=== PATIENT | female | born 1960 | race Caucasian/White ===

== ENCOUNTER → 2016-02-26 | Outpatient (CLI) | payer MEDICARE ==
--- NOTE | 2016-02-26 09:41 | WWHP ---
DATE OF SERVICE: 02/26/2016 CHIEF COMPLAINT: The patient is here for her routine gynecologic exam and mammogram. HPI: This is a 55-year-old G1, P1 with an LMP of 2011. The patient denies any postmenopausal bleeding. She continues to have some hot flashes, but they are fairly mild and improving. She is without gynecologic complaints. PAST MEDICAL HISTORY: Asthma, elevated cholesterol, chronic hypertension, seasonal allergies, arthritis, mitral valve prolapse and degenerative disc disease. MEDICATIONS: 1. Zetia 10 mg daily. 2. Flexeril 10 mg t.i.d. 3. Singulair 10 mg daily. 4. Claritin 10 mg daily. 5. QVAR 80 MG 2 puffs b.i.d. 6. Simvastatin 20 mg daily. 7. Hyzaar 1 daily. 8. Neurontin 100 mg t.i.d. 9. Omeprazole 20 mg 2 tablets t.i.d. 10. Ibuprofen p.r.n. 11. Glucosamine 1 daily. 12. Vitamin C, vitamin E and flaxseed oil supplements daily. Allergies to IV CONTRAST which caused heat at the IV site. 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 Family history is unchanged from the 2014 H&P. REVIEW OF SYSTEMS: Weight has been stable. She denies respiratory, cardiac, or GI problems. PHYSICAL EXAM: Blood pressure 121/62. Height 5 feet 3-1/2 inches. Weight 226 pounds. Temperature 98.2, pulse 87. This is a well-developed, heavyset, white female who is alert and oriented x3 in no acute distress. HEENT is within normal limits. NECK: Supple without mass or thyromegaly. CHEST AND LUNGS: Clear to auscultation. HEART: Regular rate and rhythm. Breasts are without mass or discharge. Axillary exam is negative for adenopathy. BACK: Negative for CVA tenderness. Abdomen is obese, soft, nontender, without palpable masses. PELVIC EXAM: Normal external genitalia. The cervix and vagina appear normal. There is no evidence of prolapse. The uterus is midposition, nongravid size and nontender. There are no palpable adnexal masses or tenderness. Rectovaginal exam is negative for mass or tenderness and is negative for occult blood. EXTREMITIES: Nontender. IMPRESSION: A 55-year-old menopausal female with normal gynecologic exam. PLAN: 1. Pap smear was deferred, since she had a negative one in 12/2014. 2. Self breast examination was discussed. 3. Mammogram will be done today. 4. Osteoporosis prevention was discussed. 5. She will return in one year.
--- NOTE | 2016-02-27 09:46 | MM ---
Reason for exam: screening (asymptomatic). Last mammogram was performed 1 year and 2 months ago. History: Patient is postmenopausal and has history of other cancer at age 41. Family history of breast cancer in cousin and breast cancer in mother. Physical Findings: A clinical breast exam by your physician is recommended on an annual basis and results should be correlated with mammographic findings. MG 3D Screening Mammo W/Cad Bilateral CC and MLO view(s) were taken. Prior study comparison: December 11, 2014, bilateral MG screening mammo w CAD. August 24, 2013, bilateral MG screening mammo w CAD. The breast tissue is heterogeneously dense. This may lower the sensitivity of mammography. There is chronic nodularity bilaterally. There is no dominant lesion. No significant changes when compared with prior studies. ASSESSMENT: Benign, BI-RAD 2 RECOMMENDATION: Routine screening mammogram of both breasts in 1 year.
== END | disposition home or self-care (01) ==
LOC: WWCWWP 08:36
PROVIDERS: ATTEND Obstetrics & Gynecology
DX: Z12.31 Encounter for screening mammogram for malignant neoplasm of breast (principal)
CPT/HCPCS: 77063; G0202

== ENCOUNTER → 2016-06-24 | Outpatient (CLI) | payer MEDICARE ==
[2016-06-24 10:25] LABS: Cholesterol 151 mg/dL (<200); HDL Cholesterol 30 mg/dL (40-60); Triglycerides 185 mg/dL (<150)
== END | disposition home or self-care (01) ==
LOC: LABWHC1 09:43
PROVIDERS: ATTEND Internal Medicine
DX: E78.00 Pure hypercholesterolemia, unspecified (principal); I10 Essential (primary) hypertension
CPT/HCPCS: 36415; 80061; 83721

== ENCOUNTER → 2016-08-13 | Outpatient (CLI) | payer OTHER ==
--- NOTE | 2016-08-13 13:46 | US ---
EXAMINATION TYPE: US pelvic limited DATE OF EXAM: 08/13/2016 COMPARISON: NONE CLINICAL HISTORY: R39.15 urinary urgency. Bladder pre void 2.5 x 5.8 x 5.3 cm 40.32ml. Bladder post void emptied completely. IMPRESSION: 1. No significant bladder abnormality.
== END | disposition home or self-care (01) ==
LOC: RADUSWWP 12:14
PROVIDERS: ATTEND Family Medicine
DX: R39.15 Urgency of urination (principal)
CPT/HCPCS: 76857

== ENCOUNTER → 2017-03-02 | Outpatient (CLI) | payer MEDICARE, OTHER ==
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
--- NOTE | 2017-03-03 13:21 | MM ---
Reason for exam: screening (asymptomatic). Last mammogram was performed 1 year ago. History: Patient is postmenopausal and has history of other cancer at age 41. Family history of breast cancer in cousin and breast cancer in mother. Physical Findings: A clinical breast exam by your physician is recommended on an annual basis and results should be correlated with mammographic findings. MG 3D Screening Mammo W/Cad Bilateral CC and MLO view(s) were taken. Prior study comparison: February 26, 2016, bilateral MG 3d screening mammo w/cad. December 11, 2014, bilateral MG screening mammo w CAD. August 24, 2013, bilateral MG screening mammo w CAD. The breast tissue is heterogeneously dense. This may lower the sensitivity of mammography. There is no discrete abnormality. ASSESSMENT: Negative, BI-RAD 1 RECOMMENDATION: Routine screening mammogram of both breasts in 1 year.
== END | disposition home or self-care (01) ==
LOC: WWCWWP 08:08
PROVIDERS: ATTEND Obstetrics & Gynecology
DX: Z12.31 Encounter for screening mammogram for malignant neoplasm of breast (principal)
CPT/HCPCS: 77063; 77067

== ENCOUNTER → 2018-06-07 | Outpatient (CLI) | payer MEDICARE ==
--- NOTE | 2018-06-07 13:09 | P.HPOB ---
History of Present Illness H&P Date: 06/07/18 Chief Complaint: The patient is here for her routine gynecologic exam and ma mmogram. This is a 58-year-old with an LMP of 2011. The patient is without gynecologic complaints and denies the postmenopausal bleeding. Review of Systems The patient has lost 7 pounds over the last year. She denies respiratory, cardiac, or G.I. problems. Past Medical History Past Medical History: Asthma, Cancer, Diabetes Mellitus, GERD/Reflux, Hyperlipidemia, Hypertension, Mitral Valve Prolapse (MVP), Neurologic Disorder, Osteoarthritis (OA) Additional Past Medical History / Comment(s): neuropathy in hands and feet, degenerative disc disease, skin ca shoulder 2013, mitral valve prolapse, type II diabetes, and seasonal allergies. 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 History of Any Multi-Drug Resistant Organisms: None Reported Past Surgical History: Adenoidectomy, Orthopedic Surgery, Tonsillectomy Additional Past Surgical History / Comment(s): left knee arthritis & tears repaired. Colonoscopy 2013. Past Anesthesia/Blood Transfusion Reactions: Postoperative Nausea & Vomiting (PONV) Past Psychological History: No Psychological Hx Reported Smoking Status: Never smoker Past Alcohol Use History: None Reported Past Drug Use History: None Reported Additional History: She is single and is not seeing anybody at this time. 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 She otherwise does not work outside of the home. - Past Family History Mother Family Medical History: Cancer, Congestive Heart Failure (CHF), Coronary Artery Disease (CAD), Diabetes Mellitus, Hyperlipidemia, Hypertension Additional Family Medical History / Comment(s): Breast cancer. Father Family Medical History: Coronary Artery Disease (CAD), Diabetes Mellitus, Hyperlipidemia, Hypertension Additional Family Medical History / Comment(s): passed during an angioplasty Daughter(s) Family Medical History: No Reported History Medications and Allergies Home Medications Medication Instructions Recorded Confirmed Type Ascorbic Acid [Vitamin C] 500 mg PO QAM 03/25/15 06/07/18 History Beclomethasone Dipropionate [Qvar 2 puff INHALATION RT-BID 03/25/15 06/07/18 History 80 mcg/puff] Cyclobenzaprine [Flexeril] 10 mg PO TID 03/25/15 06/07/18 History Gabapentin [Neurontin] 100 mg PO TID 03/25/15 06/07/18 History Glucosam/Dante-Msm1/C/Mukul/Bosw 1 tab PO QAM 03/25/15 06/07/18 History [Glucosamine-Chondroitin Tablet] Loratadine [Claritin] 10 mg PO QAM 03/25/15 06/07/18 History Montelukast [Singulair] 10 mg PO DAILY@1600 03/25/15 06/07/18 History Omeprazole [PriLOSEC] 20 mg PO AC-BID 03/25/15 06/07/18 History Simvastatin [Zocor] 20 mg PO HS 03/25/15 06/07/18 History Vitamin E (Dl,Tocopheryl Acet) 400 unit PO DAILY@1600 03/25/15 06/07/18 History [Vitamin E] Ezetimibe [Zetia] 10 mg PO DAILY 05/08/16 06/07/18 History Flaxseed Oil 1300mg 1,300 mg PO HS 05/08/16 06/07/18 History Aspirin 325 mg PO BID 28 Days tab 05/13/16 06/07/18 Rx Docusate [Colace] 100 mg PO BID PRN #0 cap 05/13/16 06/07/18 Rx HYDROcodone/APAP 7.5-325MG [[place] 1 each PO Q6H PRN #90 tab 05/13/16 06/07/18 Rx 7.5-325] Ipratropium-Albuterol Nebulize 3 ml INHALATION RT-QID PRN #0 05/13/16 06/07/18 Rx [Duoneb 0.5 mg-3 mg/3 ml Soln] ampul.neb Losartan [Cozaar] 50 mg PO DAILY #0 tab 05/13/16 06/07/18 Rx Magnesium Hydroxide [Milk of 2,400 mg PO DAILY PRN #0 ml 05/13/16 06/07/18 Rx Magnesia Concentrate] Cranberry Fruit Extract [Cranberry] 500 mg PO DAILY 06/07/18 06/07/18 History L.acidoph,Paracasei, B.lactis 1 each PO DAILY 06/07/18 06/07/18 History [Probiotic] Multivit with Calcium,Iron,Min 1 each PO DAILY 06/07/18 06/07/18 History [Women's Multivitamin] metFORMIN HCL [Glucophage] 500 mg PO BID 06/07/18 06/07/18 History Allergies Allergy/AdvReac Type Severity Reaction Status Date / Time Iodine and Iodide Containing Allergy burning Verified 06/07/18 12:42 Produc Exam Intake and Output 06/06/18 06/07/18 06/07/18 22:59 06:59 14:59 Other: Weight 101.2 kg Height 5'3", weight 223 pounds, BMI 39.5, blood pressure 119/87, temperature 98.4, pulse 83, pulse ox 98%, respiratory rate 18. This is a well-developed well-nourished obese white female who is alert and oriented times 3 in no acute distress. HEENT: Within normal limits. NECK: Supple without mass or thyromegaly. CHEST AND LUNGS: Clear to auscultation. HEART: Regular rate and rhythm. BREASTS: Are without mass or discharge. AXILLARY EXAM: Negative for adenopathy. BACK: Negative for CVA tenderness. ABDOMEN: Soft, obese, nontender, without palpable masses. PELVIC EXAM: Normal external genitalia with minimal atrophy. Cervix and vagina appear normal with minimal atrophy. There is no unusual discharge. There is no evidence of prolapse. The uterus is midposition, nongravid size and nontender. There are no palpable adnexal masses or tenderness. RECTAL EXAM: rectovaginal exam is negative for mass or tenderness and is negative for occult blood. EXTREMITIES: Nontender. IMPRESSION: 1. 58-year-old menopausal female with normal gynecologic exam. PLAN: 1. Pap smear was deferred since she had a normal one on 03/02/2017. 2. Self breast awareness was discussed with the patient. 3. Screening mammogram will be done today. 4. Osteoporosis prevention was discussed. I have stressed the importance of adequate calcium, vitamin D and regular exercise. Recommended amounts of calcium and vitamin D were also discussed. We plan on repeating bone density testing at age 59. 5. She was advised to return in one year for her annual well woman exam.
--- NOTE | 2018-06-07 13:40 | MM ---
Reason for exam: screening (asymptomatic). Last mammogram was performed 1 year and 3 months ago. History: Patient is postmenopausal and has history of other cancer at age 41. Family history of breast cancer in cousin and breast cancer in mother. Physical Findings: A clinical breast exam by your physician is recommended on an annual basis and results should be correlated with mammographic findings. MG 3D Screening Mammo W/Cad Bilateral CC and MLO view(s) were taken. Prior study comparison: March 02, 2017, bilateral MG 3d screening mammo w/cad. February 26, 2016, bilateral MG 3d screening mammo w/cad. The breast tissue is heterogeneously dense. This may lower the sensitivity of mammography. There is no discrete abnormality. ASSESSMENT: Negative, BI-RAD 1 RECOMMENDATION: Routine screening mammogram of both breasts in 1 year.
[2018-06-07 14:16] VITALS: BP 119/87; PULSE 83; RESP 18; TEMP 98.4; BMI 39.5
== END ==
LOC: WWCWWP 10:45
PROVIDERS: ATTEND Obstetrics & Gynecology
DX: Z12.31 Encounter for screening mammogram for malignant neoplasm of breast (principal)
CPT/HCPCS: 77063; 77067

== ENCOUNTER → 2019-06-13 | Outpatient (CLI) | payer MEDICARE, OTHER ==
--- NOTE | 2019-06-14 11:00 | ECHOF ---
Referral Reason:R01.1 cardiac murmur MEASUREMENTS -------- HEIGHT: 161.3 cm WEIGHT: 98.4 kg BP: RVIDd: 2.8 cm (< 3.3) IVSd: 1.3 cm (0.6 - 1.1) LVIDd: 4.0 cm (3.9 - 5.3) LVPWd: 1.3 cm (0.6 - 1.1) IVSs: 1.7 cm LVIDs: 2.8 cm LVPWs: 1.4 cm LA Diam: 3.3 cm (2.7 - 3.8) LAESV Index (A-L): 19.89 ml/m Ao Diam: 2.7 cm (2.0 - 3.7) AV Cusp: 1.8 cm (1.5 - 2.6) MV EXCURSION: 12.865 mm (> 18.000) MV EF SLOPE: 22 mm/s (70 - 150) EPSS: 0.6 cm MV E Eleno: 0.86 m/s MV DecT: 271 ms MV A Eleno: 1.11 m/s MV E/A Ratio: 0.77 RAP: 5.00 mmHg RVSP: 21.24 mmHg FINDINGS -------- Sinus rhythm. This was a technically adequate study. The left ventricular size is normal. There is mild concentric left ventricular hypertrophy. Overa ll left ventricular systolic function is normal with, an EF between 60 - 65 %. The right ventricle is normal in size. Normal LA size by volume 22+/-6 ml/m2. The right atrium is normal in size. Interatrial and interventricular septum intact. There is mild aortic valve sclerosis. The mitral valve leaflets are mildly thickened. Mild tricuspid regurgitation present. Right ventricular systolic pressure is normal at < 35 mmHg. The pulmonic valve was not well visualized. The aortic root size is normal. IVC Not well visulized. There is no pericardial effusion. CONCLUSIONS -------- 1. Sinus rhythm. 2. This was a technically adequate study. 3. The left ventricular size is normal. 4. There is mild concentric left ventricular hypertrophy. 5. Overall left ventricular systolic function is normal with, an EF between 60 - 65 %. 6. The right ventricle is normal in size. 7. Normal LA size by volume 22+/-6 ml/m2. 8. The right atrium is normal in size. 9. Interatrial and interventricular septum intact. 10. There is mild aortic valve sclerosis. 11. The mitral valve leaflets are mildly thickened. 12. Mild tricuspid regurgitation present. 13. Right ventricular systolic pressure is normal at < 35 mmHg. 14. The pulmonic valve was not well visualized. 15. The aortic root size is normal. 16. IVC Not well visulized. 17. There is no pericardial effusion. ICU REGISTERED NURSE: ANABELA Covarrubias
== END | disposition home or self-care (01) ==
LOC: RADECHMAIN 11:50
PROVIDERS: ATTEND Internal Medicine
DX: I08.3 Combined rheumatic disorders of mitral, aortic and tricuspid valves (principal)
CPT/HCPCS: 93306

== ENCOUNTER → 2019-09-19 | Outpatient (CLI) | payer MEDICARE ==
[2019-09-19 11:38] VITALS: BP 123/74; PULSE 81; RESP 18; TEMP 98.3
--- NOTE | 2019-09-19 12:09 | P.HPOB ---
History of Present Illness H&P Date: 09/19/19 Chief Complaint: The patient is here for her routine gynecologic exam and ma mmogram. This is a 59-year-old with an LMP of 2011. The patient is without gynecologic complaints and denies any postmenopausal bleeding. She is in a new relationship and has been with her boyfriend for about 5 months and does not live with him. She is sexually active. Review of Systems The patient has lost 5 pounds over the last year. She denies respiratory, cardiac, or G.I. problems. Past Medical History Past Medical History: Asthma, Cancer, Diabetes Mellitus, GERD/Reflux, Hyperlipidemia, Hypertension, Mitral Valve Prolapse (MVP), Neurologic Disorder, Osteoarthritis (OA) Additional Past Medical History / Comment(s): neuropathy in hands and feet, degenerative disc disease, skin ca shoulder 2013, mitral valve prolapse, type II diabetes, and seasonal allergies. 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 History of Any Multi-Drug Resistant Organisms: ESBL Date of last positivie culture/infection: 11/30/18 ESBL-E.coli MDRO Source:: Urine Past Surgical History: Adenoidectomy, Orthopedic Surgery, Tonsillectomy Additional Past Surgical History / Comment(s): left knee arthritis & tears repaired. Colonoscopy 2013(next after 10yr). Past Anesthesia/Blood Transfusion Reactions: Postoperative Nausea & Vomiting (PONV) Past Psychological History: No Psychological Hx Reported Smoking Status: Never smoker Past Alcohol Use History: None Reported Past Drug Use History: None Reported Additional History: She is single and has been with her boyfriend since early 2019. She does not live with him. 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 - Past Family History Mother Family Medical History: Cancer, Congestive Heart Failure (CHF), Coronary Artery Disease (CAD), Diabetes Mellitus, Hyperlipidemia, Hypertension Additional Family Medical History / Comment(s): Breast cancer. Father Family Medical History: Coronary Artery Disease (CAD), Diabetes Mellitus, Hyperlipidemia, Hypertension Additional Family Medical History / Comment(s): passed during an angioplasty Daughter(s) Family Medical History: No Reported History Medications and Allergies Home Medications Medication Instructions Recorded Confirmed Type Ascorbic Acid [Vitamin C] 500 mg PO QAM 03/25/15 06/07/18 History Beclomethasone Dipropionate [Qvar 2 puff INHALATION RT-BID 03/25/15 06/07/18 History 80 mcg/puff] Cyclobenzaprine [Flexeril] 10 mg PO TID 03/25/15 06/07/18 History Gabapentin [Neurontin] 100 mg PO TID 03/25/15 06/07/18 History Glucosam/Dante-Msm1/C/[place]/Bosw 1 tab PO QAM 03/25/15 06/07/18 History [Glucosamine-Chondroitin Tablet] Loratadine [Claritin] 10 mg PO QAM 03/25/15 06/07/18 History Montelukast [Singulair] 10 mg PO DAILY@1600 03/25/15 06/07/18 History Omeprazole [PriLOSEC] 20 mg PO AC-BID 03/25/15 06/07/18 History Simvastatin [Zocor] 20 mg PO HS 03/25/15 06/07/18 History Vitamin E (Dl,Tocopheryl Acet) 400 unit PO DAILY@1600 03/25/15 06/07/18 History [Vitamin E] Ezetimibe [Zetia] 10 mg PO DAILY 05/08/16 06/07/18 History Flaxseed Oil 1300mg 1,300 mg PO HS 05/08/16 06/07/18 History Aspirin 325 mg PO BID 28 Days tab 05/13/16 06/07/18 Rx Docusate [Colace] 100 mg PO BID PRN #0 cap 05/13/16 06/07/18 Rx HYDROcodone/APAP 7.5-325MG [[place] 1 each PO Q6H PRN #90 tab 05/13/16 06/07/18 Rx 7.5-325] Ipratropium-Albuterol Nebulize 3 ml INHALATION RT-QID PRN #0 05/13/16 06/07/18 Rx [Duoneb 0.5 mg-3 mg/3 ml Soln] ampul.neb Losartan [Cozaar] 50 mg PO DAILY #0 tab 05/13/16 06/07/18 Rx Magnesium Hydroxide [Milk of 2,400 mg PO DAILY PRN #0 ml 05/13/16 06/07/18 Rx Magnesia Concentrate] Cranberry Fruit Extract [Cranberry] 500 mg PO DAILY 06/07/18 06/07/18 History L.acidoph,Paracasei, B.lactis 1 each PO DAILY 06/07/18 06/07/18 History [Probiotic] Multivit with Calcium,Iron,Min 1 each PO DAILY 06/07/18 06/07/18 History [Women's Multivitamin] metFORMIN HCL [Glucophage] 500 mg PO BID 06/07/18 06/07/18 History Allergies Allergy/AdvReac Type Severity Reaction Status Date / Time Iodine and Iodide Containing Allergy burning Verified 09/19/19 11:31 Produc Exam Vital Signs Temp Pulse Resp BP Pulse Ox 09/19/19 11:34 98.3 F 81 18 123/74 98 Intake and Output 09/18/19 09/19/19 09/19/19 22:59 06:59 14:59 Other: Weight 98.883 kg Height 5 feet 3-1/2 inches, weight 218 pounds, BMI 30.0. This is a well-developed well-nourished heavyset white female who is alert and oriented times 3 in no acute distress. HEENT: Within normal limits. NECK: Supple without mass or thyromegaly. CHEST AND LUNGS: Clear to auscultation. HEART: Regular rate and rhythm. BREASTS: Are without mass or discharge. AXILLARY EXAM: Negative for adenopathy. BACK: Negative for CVA tenderness. ABDOMEN: Soft, nontender, without palpable masses. PELVIC EXAM: Normal external genitalia with minimal atrophy. Cervix and vagina appear normal with minimal atrophy. There is no unusual discharge. There is no evidence of prolapse. The uterus is midposition, nongravid size and nontender. There are no palpable adnexal masses or tenderness. Bimanual examination is somewhat limited secondary to her size. RECTAL EXAM: Rectovaginal exam is negative for mass or tenderness and is negative for occult blood. EXTREMITIES: Nontender. IMPRESSION: 1. 59-year-old menopausal female with normal gynecologic exam. PLAN: 1. Pap smear was performed. 2. Self breast awareness was discussed with the patient. 3. Screening mammogram will be done today. 4. GC and chlamydia testing from the cervix has been obtained since she does have a new sexual partner. STD prevention was discussed. I have stressed the importance of limiting sexual partners and I recommended she consider condom use when she is sexually active. 5. Osteoporosis prevention was discussed. I have stressed the importance of adequate calcium, vitamin D and regular exercise. Recommended amounts of calcium and vitamin D were also discussed. Bone density testing was recommended and the order slip was given to the patient for this. 6. She was advised to return in one year for her annual well woman exam.
--- NOTE | 2019-09-21 11:32 | MM ---
Reason for exam: screening (asymptomatic). Last mammogram was performed 1 year and 3 months ago. History: Patient is postmenopausal and has history of other cancer at age 41. Family history of breast cancer in cousin and breast cancer in mother. Physical Findings: A clinical breast exam by your physician is recommended on an annual basis and results should be correlated with mammographic findings. MG 3D Screening Mammo W/Cad Bilateral CC and MLO view(s) were taken. Prior study comparison: June 07, 2018, bilateral MG 3d screening mammo w/cad. March 02, 2017, bilateral MG 3d screening mammo w/cad. The breast tissue is heterogeneously dense. This may lower the sensitivity of mammography. No significant changes when compared with prior studies. ASSESSMENT: Negative, BI-RAD 1 RECOMMENDATION: Routine screening mammogram of both breasts in 1 year.
--- NOTE | 2019-09-27 11:48 | P.PN ---
Progress Note - Text Progress Note Date: 09/27/19 OUTPATIENT FOLLOW-UP NOTE TEST(S)/RESULTS: Test results from 09/19/2019 include negative Pap smear, negative GC and chlamydia testing, and benign mammogram. METHOD OF NOTIFICATION: The patient was notified by phone. PATIENT COMMENTS: DIAGNOSIS: If Pap smear, benign mammogram and negative GC and chlamydia testing. DISCUSSION: PLAN: She was advised to return in one year for her annual well woman exam.
== END | disposition home or self-care (01) ==
LOC: WWCWWP 10:54
PROVIDERS: ATTEND Obstetrics & Gynecology
DX: Z12.31 Encounter for screening mammogram for malignant neoplasm of breast (principal)
CPT/HCPCS: 77063; 77067

== ENCOUNTER → 2020-05-16 | Day surgery (SDC) | payer MEDICARE ==
[2020-05-10 13:08] VITALS: BMI 39.0
[~2020-05-16] MED LIST: ALPRAZolam 0.25 MG TAB PO PRN; ALPRAZolam 0.5 MG TAB PO PRN; ASPIRIN 325 MG TAB PO STA; ATORVASTATIN 80 MG TAB PO STA; HEPARIN SODIUM 1,000 UN/ML (10ML VL) ONE; HEPARIN SODIUM,PORCINE 10,000 UNIT in SODIUM CHLORIDE 0.9% 1,000 ML IRRIGATION PRN; HEPARIN SODIUM,PORCINE 2,500 UNIT in SODIUM CHLORIDE 0.9% 250 ML IRRIGATION PRN; INSULIN ASPART (NovoLOG) 100 UNIT/ML VIAL SQ ONE; IOPAMIDOL-370 125ML BTL INJ ONE; LIDOCAINE 1% INJ 10MG/ML (20 ML MDV) ONE; LIDOCAINE 1% INJ 10MG/ML (20 ML MDV) SQ ONE; MIDAZOLAM 2 MG/2 ML VIAL IV ONE; NITROGLYCERIN SL TABS 0.4 MG TAB SUBLINGUAL PRN; RX INFO: IV CONTRAST WAS GIVEN 1 EACH MISC MISCELLANE PRN; SODIUM CHLORIDE 0.9% 1,000 ML IV ONE; SODIUM CHLORIDE 0.9% 1,000 ML IV SCH; SODIUM CHLORIDE 0.9% 1,000 ML in EMPTY BAG 1 BAG IV ONE; VERAPAMIL 2.5 MG/ML 2 ML AMP ONE; VERAPAMIL SYRINGE (5 MG/10 ML) INTRAARTER ONE; fentaNYL (PF) 50 MCG/ML 2 ML AMP IV ONE; fentaNYL (PF) 50 MCG/ML 2 ML AMP ONE
[2020-05-16 07:14] LABS: Glucose,Whole Blood 200 mg/dL (75-99)
[2020-05-16 07:15] LABS: Basophils % (A) 0 %; Eosinophils % (A) 0 %; HCT 42.2 % (34.0-46.0); HGB 14.3 gm/dL (11.4-16.0); Lymphocytes # (A) 2.6 k/uL (1.0-4.8); Lymphocytes % (A) 11 %; MCH 31.5 pg (25.0-35.0); MCHC 33.9 g/dL (31.0-37.0); MCV 92.9 fL (80.0-100.0); Mean Platelet Volume 7.6; Monocytes # (A) 1.2 k/uL (0-1.0); Monocytes % (A) 5 %; Neutrophils # (A) 18.9 k/uL (1.3-7.7); Neutrophils % (A) 81 %; Platelet Count 411 k/uL (150-450); RBC 4.54 m/uL (3.80-5.40); RDW 13.3 % (11.5-15.5); WBC 23.5 k/uL (3.8-10.6)
[2020-05-16 07:19] VITALS: RESP 16; TEMP 98.3
--- NOTE | 2020-05-16 08:26 | P.CARDCATH ---
Date of Procedure: 05/16/20 Preoperative Diagnosis: Chest pain and positive stress test Postoperative Diagnosis: Normal coronary arteries. Elevated end-diastolic pressure Procedure(s) Performed: Left heart catheterization without left ventriculography Description of Procedure: HISTORY: This is a 59-year-old female with history of hypertension, hypercholesterolemia and diabetes who has been experiencing chest pain and back pain. A nuclear stress test showed possible ischemia involving the anteroapical and inferolateral wall, though soft tissue attenuation could not be excluded. Patient is given the choice of having cardiac catheterization or dobutamine echocardiogram for definitive diagnosis. Patient preferred to have a cardiac catheterization CONSENT:I have discussed the risks, benefits and alternative therapies for the above-mentioned procedure and for both sedation/analgesia as well as necessary blood product administration, if indicated, as they pertain to this patient. The patient has indicated understanding and acceptance of the risks and procedures discussed. PROCEDURE: Patient was brought to the lab in a fasting state. Patient was given some IV sedation. The right wrist is infiltrated with lidocaine and right radial artery was entered using Seldinger technique. A 6-Yakut catheter was left in place and selective coronary arteriography was performed. Patient tolerated the procedure well. TR band was applied for hemostasis. No immediate complications were noted and patient was transferred to [facility] in a stable condition Conscious Sedation: Versed 0.5 mg Fentanyl 25 g Duration 16 minutes HEMODYNAMICS: Aortic pressure is about 100/60. The left ventricular end- diastolic pressure was about 25. There was no gradient across the aortic valve SELECTIVE CORONARY ARTERIOGRAPHY: LEFT MAIN: Short and divides immediately into left anterior descending and circumflex coronary artery THE LEFT ANTERIOR DESCENDING CORONARY ARTERY: . Good caliber vessel wrapping around the apex giving rise to several septal branches. The LAD and branches are free of occlusive disease THE LEFT CIRCUMFLEX AND IS CORONARY ARTERY: . Moderate caliber vessel and nondominant and free of occlusive disease THE RIGHT CORONARY ARTERY: . Him and vessel giving rise to PDA and PLV and free of occlusive disease LEFT VENTRICULOGRAPHY: Not performed FINAL IMPRESSION: Normal coronary arteries. Elevated end-diastolic pressure is sized to diastolic dysfunction PLAN: Continued medical therapy and risk factor modification PROGNOSIS: fair
[2020-05-16 14:00] VITALS: BP 127/67; PULSE 92
== END | disposition home or self-care (01) ==
LOC: CATHCVL 06:34
PROVIDERS: ATTEND Internal Medicine Cardiovascular Disease
DX: R07.9 Chest pain, unspecified (principal); R94.39 Abnormal result of other cardiovascular function study; I10 Essential (primary) hypertension; E78.5 Hyperlipidemia, unspecified; E11.9 Type 2 diabetes mellitus without complications; E78.00 Pure hypercholesterolemia, unspecified; Z82.49 Family history of ischemic heart disease and other diseases of the circulatory system; Z79.84 Long term (current) use of oral hypoglycemic drugs; Z79.82 Long term (current) use of aspirin; Z79.899 Other long term (current) drug therapy; Z91.048 Other nonmedicinal substance allergy status
CPT/HCPCS: 93458; 85025; C1894; J2250; J2001; J3010; J1644; Q9967

== ENCOUNTER → 2020-10-15 | Outpatient (CLI) | payer MEDICARE ==
[2020-10-15 11:51] VITALS: BP 157/90; PULSE 100; TEMP 98.3
--- NOTE | 2020-10-15 12:35 | P.HPOB ---
History of Present Illness H&P Date: 10/15/20 Chief Complaint: The patient is here for her routine gynecologic exam and ma mmogram. This is a 60-year-old with an LMP of 2011. The patient is without gynecologic complaints and denies any postmenopausal bleeding. She has been treated for 2 urinary tract infections over the past 2 months. She has slight urinary frequency now and also states that her main symptom for UTI has been urinary odor. She does notice a slight urinary odor at this time. Her last course of antibiotics for UTI was finished about 2 weeks ago. This was treated by her PCP. Review of Systems The patient has gained 4 pounds over the last year. She denies respiratory, cardiac, or G.I. problems. : See the HPI. Past Medical History Past Medical History: Asthma, Cancer, Diabetes Mellitus, GERD/Reflux, Hyperlipidemia, Hypertension, Mitral Valve Prolapse (MVP), Neurologic Disorder, Osteoarthritis (OA) Additional Past Medical History / Comment(s): neuropathy in hands and feet, degenerative disc disease, skin ca shoulder 2013, mitral valve prolapse, type II diabetes, and seasonal allergies. 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 History of Any Multi-Drug Resistant Organisms: ESBL Date of last positivie culture/infection: 11/30/18 ESBL-E.coli MDRO Source:: Urine Past Surgical History: Adenoidectomy, Orthopedic Surgery, Tonsillectomy Additional Past Surgical History / Comment(s): left knee arthritis & tears repaired. Colonoscopy 2013(next after 10yr)., 2017 HAD TITANIUM NAIL/DUSTIN IN LT FEMUR Past Anesthesia/Blood Transfusion Reactions: Postoperative Nausea & Vomiting (PONV) Past Psychological History: No Psychological Hx Reported Smoking Status: Never smoker Past Alcohol Use History: None Reported Past Drug Use History: None Reported Additional History: She is single and has been with her boyfriend since 2019. She does not live with him. She is retired. - Past Family History Mother Family Medical History: Cancer, Congestive Heart Failure (CHF), Coronary Artery Disease (CAD), Diabetes Mellitus, Hyperlipidemia, Hypertension Additional Family Medical History / Comment(s): Breast cancer. Father Family Medical History: Coronary Artery Disease (CAD), Diabetes Mellitus, Hyperlipidemia, Hypertension Additional Family Medical History / Comment(s): passed during an angioplasty Daughter(s) Family Medical History: No Reported History Sister(s) Family Medical History: Cancer Medications and Allergies Home Medications Medication Instructions Recorded Confirmed Type Cyclobenzaprine [Flexeril] 10 mg PO TID 03/25/15 10/15/20 History Gabapentin [Neurontin] 100 mg PO BID 03/25/15 10/15/20 History Glucosam/Dante-Msm1/C/Mukul/Bosw 1 tab PO QAM 03/25/15 10/15/20 History [Glucosamine-Chondroitin Tablet] Loratadine [Claritin] 10 mg PO QAM 03/25/15 10/15/20 History Montelukast [Singulair] 10 mg PO DAILY@1600 03/25/15 10/15/20 History Simvastatin [Zocor] 20 mg PO QAM 03/25/15 10/15/20 History Ezetimibe [Zetia] 10 mg PO DAILY 05/08/16 10/15/20 History Losartan [Cozaar] 50 mg PO DAILY #0 tab 05/13/16 10/15/20 Rx L.acidoph,Paracasei, B.lactis 1 each PO DAILY 06/07/18 10/15/20 History [Probiotic] metFORMIN HCL [Glucophage] 500 mg PO BID 06/07/18 10/15/20 History Biotin 10,000 mcg PO QAM 09/19/19 10/15/20 History Ibuprofen 800 mg PO Q8H 09/19/19 10/15/20 History Oxybutynin Chloride [Oxybutynin 10 mg PO QAM 09/19/19 10/15/20 History Chloride ER] Ascorbic Acid [Vitamin C] 500 mg PO DAILY 05/10/20 10/15/20 History Aspirin 325 mg PO DAILY 05/10/20 10/15/20 History Cider Vinegar [Apple Cider Vinegar] 300 mg PO DAILY 05/10/20 10/15/20 History Cranberry Fruit Extract [Cranberry] 500 mg PO DAILY 05/10/20 10/15/20 History Gabapentin [Neurontin] 300 mg PO HS 05/10/20 10/15/20 History [place]-3 Acid Ethyl Esters [Lovaza] 2 gm PO BID 05/10/20 10/15/20 History Omeprazole [PriLOSEC] 40 mg PO DAILY 05/10/20 10/15/20 History Calcium Carbonate [Calcium] 600 mg PO DAILY 10/15/20 10/15/20 History Cholecalciferol [Vitamin D3 (25 25 mcg PO DAILY 10/15/20 10/15/20 History Mcg = 1000 Iu)] Allergies Allergy/AdvReac Type Severity Reaction Status Date / Time Iodine and Iodide Containing Allergy burning Verified 10/15/20 11:42 Produc Exam Vital Signs Temp Pulse BP Pulse Ox 10/15/20 11:43 98.3 F 100 157/90 96 Intake and Output 10/14/20 10/15/20 10/15/20 22:59 06:59 14:59 Other: Weight 100.698 kg Height 5 feet 3 inches, weight 222 pounds, BMI 39.3. This is a well-developed well-nourished heavyset white female who is alert and oriented times 3 in no acute distress. HEENT: Within normal limits. NECK: Supple without mass or thyromegaly. CHEST AND LUNGS: Clear to auscultation. HEART: Regular rate and rhythm. BREASTS: Are without mass or discharge. AXILLARY EXAM: Negative for adenopathy. BACK: Negative for CVA tenderness. ABDOMEN: Soft, obese, nontender, without palpable masses. PELVIC EXAM: Normal external genitalia with mild atrophy. Cervix and vagina appear normal mild atrophy. There is no unusual discharge. There is no evidence of prolapse. The uterus is midposition, nongravid size and nontender. There are no palpable adnexal masses or tenderness. Bimanual examination is somewhat limited secondary to her size. RECTAL EXAM: Rectovaginal exam is negative for mass or tenderness and is negative for occult blood. EXTREMITIES: Nontender. IMPRESSION: 1. 60-year-old menopausal female with normal gynecologic exam. 2. Slight urinary frequency and slight urinary odor. She had been treated for 2 urinary tract infections over the past couple of months. Differential diagnosis will include cystitis Eli mild interstitial cystitis, or physiologic mild urinary symptoms. PLAN: 1. Pap smear cotest was performed. 2. Self breast awareness was discussed with the patient. We have also discussed symptoms associated with inflammatory breast cancer. 3. Screening mammogram will be done today. 4. Osteoporosis prevention was discussed. I have stressed the importance of adequate calcium, vitamin D and regular exercise. Recommended amounts of calcium and vitamin D were also given to the patient in the form of a handout. Her last bone density test was normal in 2013. We will plan on repeating this next year at her well woman examination. 5. Urine has been obtained for urinalysis and culture with sensitivity. If she continues to have urinary symptoms or recurrent UTIs, I recommended that she follow-up with her urologist, Dr. Roberts. She is aware that certain foods, medications, or supplements, may cause urinary odor. She will pay attention to see if this is related to anything she is consuming. 6. She was advised to return in one year for her annual well woman exam and as needed.
--- NOTE | 2020-10-16 12:42 | P.PN ---
Progress Note - Text Progress Note Date: 10/16/20 OUTPATIENT FOLLOW-UP NOTE TEST(S)/RESULTS: Test results from 10/15/2020 include urinalysis showing moderate leukocyte esterase. METHOD OF NOTIFICATION: The patient was notified by phone. PATIENT COMMENTS: She has been having some urinary odor and urinary frequency. She is not ALLERGIC to any antibiotics. DIAGNOSIS: Cystitis UTI. DISCUSSION: She will be treated with Macrobid 1 by mouth twice a day 7 days. She will call if her symptoms are not improving. We can then refer to the culture and sensitivities. The electronic prescription will be sent to [facility] pharmacy on . PLAN: As above.
--- NOTE | 2020-10-17 12:08 | MM ---
Reason for exam: screening (asymptomatic). Last mammogram was performed 1 year and 1 month ago. History: Patient is postmenopausal and has history of other cancer at age 34. Family history of breast cancer in cousin and breast cancer in mother. Physical Findings: A clinical breast exam by your physician is recommended on an annual basis and results should be correlated with mammographic findings. MG 3D Screening Mammo W/Cad Bilateral CC and MLO view(s) were taken. XCCL view(s) were taken of the right breast. Prior study comparison: September 19, 2019, bilateral MG 3d screening mammo w/cad. June 07, 2018, bilateral MG 3d screening mammo w/cad. The breast tissue is heterogeneously dense. This may lower the sensitivity of mammography. No significant changes when compared with prior studies. ASSESSMENT: Benign, BI-RAD 2 RECOMMENDATION: Routine screening mammogram of both breasts in 1 year.
== END ==
LOC: WWCWWP 11:27
PROVIDERS: ATTEND Obstetrics & Gynecology
DX: Z12.31 Encounter for screening mammogram for malignant neoplasm of breast (principal); Z01.419 Encounter for gynecological examination (general) (routine) without abnormal findings; E78.5 Hyperlipidemia, unspecified; I10 Essential (primary) hypertension; J45.909 Unspecified asthma, uncomplicated; I34.1 Nonrheumatic mitral (valve) prolapse; M19.90 Unspecified osteoarthritis, unspecified site; E11.40 Type 2 diabetes mellitus with diabetic neuropathy, unspecified; K21.9 Gastro-esophageal reflux disease without esophagitis; Z79.84 Long term (current) use of oral hypoglycemic drugs; Z79.899 Other long term (current) drug therapy; R35.0 Frequency of micturition; Z80.3 Family history of malignant neoplasm of breast; Z91.041 Radiographic dye allergy status
CPT/HCPCS: 77063; 77067

== ENCOUNTER → 2021-03-05 | Outpatient (CLI) | payer MEDICARE ==
--- NOTE | 2021-03-05 19:34 | XR ---
EXAMINATION TYPE: XR chest 2V DATE OF EXAM: 03/05/2021 COMPARISON: 05/08/2016 HISTORY: 60 years Female. STUDY INDICATION GIVEN: R05.9 . TECHNIQUE: Frontal and lateral chest radiographs. IMPRESSION: No focal airspace disease, pneumothorax or pleural effusion. The cardiomediastinal silhouette is normal in appearance. No acute osseous abnormalities seen.
== END | disposition home or self-care (01) ==
LOC: RADXRMAIN 18:14
PROVIDERS: ATTEND Family Medicine
DX: R05.9 Cough, unspecified (principal)
CPT/HCPCS: 71046

== ENCOUNTER → 2021-05-05 | Outpatient (CLI) | payer MEDICARE ==
[2021-05-05 22:44] LABS: Immunoglobulin E 25.8 IU/mL (0.00-114.00)
== END | disposition home or self-care (01) ==
LOC: LABWHC1 14:28
PROVIDERS: ATTEND Internal Medicine Critical Care Medicine
DX: R05.3 Chronic cough (principal)
CPT/HCPCS: 36415; 82785; 85008; 86003

== ENCOUNTER → 2021-05-19 | Outpatient (CLI) | payer MEDICARE ==
--- NOTE | 2021-05-19 12:56 | CT ---
EXAMINATION TYPE: CT chest wo con DATE OF EXAM: 05/19/2021 COMPARISON: 05/08/2016 HISTORY: CHRONIC COUGH CT DLP: 565 mGycm. Automated Exposure Control for Dose Reduction was Utilized. TECHNIQUE: CT scan of the thorax is performed without IV contrast. FINDINGS: LUNGS: The lungs are grossly clear, there is no concerning parenchymal mass or nodule identified. T here is no pleural effusion or pneumothorax seen. The tracheobronchial tree is patent. 5 mm subpleur al nodule left lower lobe. MEDIASTINUM: Lack of IV contrast is noted to limit evaluation for mediastinal and especially hilar ad enopathy. There are no definitive greater than 1 cm hilar or mediastinal lymph nodes. No cardiomega ly or pericardial effusion is seen. OTHER: Hypertrophic and degenerative changes of the spine. Scoliosis. Liver is enlarged and low in at tenuation correlate with hepatic steatosis. 11 mm nodule or nodular breast tissue lateral margin righ t breast. IMPRESSION: 1. Stable 5 mm nodule subpleural left lower lobe unchanged from 2017 and therefore benign. 2. No acute intrathoracic process. 3. Hepatomegaly correlate for hepatic steatosis. 4. There is a 11 mm nodule in the right breast recommended a mammogram.
== END | disposition home or self-care (01) ==
LOC: RADCTMAIN 10:30
PROVIDERS: ATTEND Internal Medicine Critical Care Medicine
DX: R91.1 Solitary pulmonary nodule (principal); R16.0 Hepatomegaly, not elsewhere classified; N63.10 Unspecified lump in the right breast, unspecified quadrant
CPT/HCPCS: 71250

== ENCOUNTER → 2021-05-28 | Outpatient (CLI) | payer MEDICARE ==
--- NOTE | 2021-05-28 09:09 | MM ---
Reason for exam: clinical finding. Last mammogram was performed 7 months ago. History: Patient is postmenopausal and has history of other cancer at age 34. Family history of breast cancer in cousin and breast cancer in mother. Physical Findings: A clinical breast exam by your physician is recommended on an annual basis and results should be correlated with mammographic findings. MG 3D Diag Mammo W/Cad RT CC, MLO, and XCCL view(s) were taken of the right breast. Prior study comparison: October 15, 2020, bilateral MG 3d screening mammo w/cad. September 19, 2019, bilateral MG 3d screening mammo w/cad. The breast tissue is heterogeneously dense. This may lower the sensitivity of mammography. There is no discrete abnormality including area of concern. No significant new findings when compared with previous films. Results were given to the patient verbally at the time of the exam. ASSESSMENT: Negative, BI-RAD 1 RECOMMENDATION: Return to routine screening mammogram schedule for both breasts. Back on schedule for October 2021.
== END | disposition home or self-care (01) ==
LOC: RADMAMWWP 08:21
PROVIDERS: ATTEND Obstetrics & Gynecology
DX: R92.8 Other abnormal and inconclusive findings on diagnostic imaging of breast (principal); Z78.0 Asymptomatic menopausal state; Z80.3 Family history of malignant neoplasm of breast
CPT/HCPCS: 77065; G0279; 77061

== ENCOUNTER → 2022-02-10 | Outpatient (CLI) | payer MEDICARE ==
[2022-02-10 09:54] VITALS: BP 116/70; PULSE 82; RESP 17; TEMP 98
--- NOTE | 2022-02-10 10:19 | P.HPOB ---
History of Present Illness H&P Date: 02/10/22 Chief Complaint: The patient is here for her routine gynecologic exam and ma mmogram. This is a 61-year-old with an LMP of 2011. The patient is without gynecologic complaints. She is now seeing Dr. Roberts, the urologist, for frequent urinary tract infections. She states the first sign of a UTI seems to be urinary odor. She denies any unusual discharge at this time. She is not sexually active. Review of Systems The patient has lost 20 pounds over the last year. She denies respiratory, cardiac, or G.I. problems. Past Medical History Past Medical History: Asthma, Cancer, Diabetes Mellitus, GERD/Reflux, Hyperlipidemia, Hypertension, Mitral Valve Prolapse (MVP), Neurologic Disorder, Osteoarthritis (OA) Additional Past Medical History / Comment(s): neuropathy in hands and feet, degenerative disc disease, skin ca shoulder 2013, mitral valve prolapse, type II diabetes, and seasonal allergies. 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 History of Any Multi-Drug Resistant Organisms: ESBL Date of last positivie culture/infection: 11/30/18 ESBL-E.coli MDRO Source:: Urine Past Surgical History: Adenoidectomy, Orthopedic Surgery, Tonsillectomy Additional Past Surgical History / Comment(s): left knee arthritis & tears repaired. Colonoscopy 2013(next after 10yr)., 2017 HAD TITANIUM NAIL/DUSTIN IN LT FEMUR Past Anesthesia/Blood Transfusion Reactions: Postoperative Nausea & Vomiting (PONV) Past Psychological History: No Psychological Hx Reported Smoking Status: Never smoker Past Alcohol Use History: Rare (2 per Year) Past Drug Use History: None Reported Additional History: She is single and is not seeing anybody this time and is not sexually active. She is retired. - Past Family History Mother Family Medical History: Cancer, Congestive Heart Failure (CHF), Coronary Artery Disease (CAD), Diabetes Mellitus, Hyperlipidemia, Hypertension Additional Family Medical History / Comment(s): Breast cancer. Father Family Medical History: Coronary Artery Disease (CAD), Diabetes Mellitus, Hyperlipidemia, Hypertension Additional Family Medical History / Comment(s): passed during an angioplasty Daughter(s) Family Medical History: No Reported History Sister(s) Family Medical History: Cancer Medications and Allergies Home Medications Medication Instructions Recorded Confirmed Type Cyclobenzaprine [Flexeril] 10 mg PO TID 03/25/15 10/15/20 History Glucosam/Dante-Msm1/C/Mukul/Bosw 1 tab PO QAM 03/25/15 10/15/20 History [Glucosamine-Chondroitin Tablet] Loratadine [Claritin] 10 mg PO QAM 03/25/15 10/15/20 History Montelukast [Singulair] 10 mg PO DAILY@1600 03/25/15 10/15/20 History Simvastatin [Zocor] 20 mg PO QAM 03/25/15 10/15/20 History Ezetimibe [Zetia] 10 mg PO DAILY 05/08/16 10/15/20 History Losartan [Cozaar] 50 mg PO DAILY #0 tab 05/13/16 10/15/20 Rx L.acidoph,Paracasei, B.lactis 1 each PO DAILY 06/07/18 10/15/20 History [Probiotic] metFORMIN HCL [Glucophage] 500 mg PO BID 06/07/18 10/15/20 History Biotin 10,000 mcg PO QAM 09/19/19 10/15/20 History Ibuprofen 800 mg PO Q8H 09/19/19 10/15/20 History Oxybutynin Chloride [Oxybutynin 10 mg PO QAM 09/19/19 10/15/20 History Chloride ER] Ascorbic Acid [Vitamin C] 500 mg PO DAILY 05/10/20 10/15/20 History Aspirin 325 mg PO DAILY 05/10/20 10/15/20 History Cider Vinegar [Apple Cider Vinegar] 300 mg PO DAILY 05/10/20 10/15/20 History Cranberry Fruit Extract [Cranberry] 500 mg PO DAILY 05/10/20 10/15/20 History Gabapentin [Neurontin] 300 mg PO HS 05/10/20 10/15/20 History Omeprazole [PriLOSEC] 40 mg PO DAILY 05/10/20 10/15/20 History Calcium Carbonate [Calcium] 600 mg PO DAILY 10/15/20 10/15/20 History Cholecalciferol [Vitamin D3 (25 25 mcg PO DAILY 10/15/20 10/15/20 History Mcg = 1000 Iu)] Nitrofurantoin Monohyd/M-Cryst 100 mg PO Q12HR 7 Days #14 cap 10/16/20 Rx [Macrobid] Rosuvastatin [Crestor] 20 mg PO DAILY 02/10/22 02/10/22 History Allergies Allergy/AdvReac Type Severity Reaction Status Date / Time Iodine and Iodide Containing Allergy burning Verified 02/10/22 09:39 Produc Exam Vital Signs Temp Pulse Resp BP Pulse Ox 02/10/22 09:52 98 F 82 17 116/70 99 Intake and Output 02/09/22 02/10/22 02/10/22 22:59 06:59 14:59 Other: Weight 91.626 kg Height 5 feet 3 inches, weight 202 pounds, BMI 35.8. This is a well-developed well-nourished white female who is alert and oriented times 3 in no acute distress. HEENT: Within normal limits. NECK: Supple without mass or thyromegaly. CHEST AND LUNGS: Clear to auscultation. HEART: Regular rate and rhythm. BREASTS: Are without mass or discharge. AXILLARY EXAM: Negative for adenopathy. BACK: Negative for CVA tenderness. ABDOMEN: Soft, nontender, without palpable masses. PELVIC EXAM: Normal external genitalia with mild atrophy. Cervix and vagina appear normal is mild atrophy. There is no unusual discharge. No vaginal odor is noted. There is no evidence of prolapse. The uterus is midposition, nongravid size and nontender. There are no palpable adnexal masses or tenderness. RECTAL EXAM: Rectovaginal exam is negative for mass or tenderness and is negative for occult blood. EXTREMITIES: Nontender. IMPRESSION: 1. 61-year-old menopausal female with normal gynecologic exam. 2. History of frequent urinary tract infections and she is seeing a urologist for this. PLAN: 1. Pap smear was deferred since she had a negative Pap smear cotest on 10/15/2020. 2. Self breast awareness was discussed with the patient. We have also discussed symptoms associated with inflammatory breast cancer. 3. Screening mammogram will be done today. 4. Osteoporosis prevention was discussed. I have stressed the importance of adequate calcium, vitamin D and regular exercise. Recommended amounts of calcium and vitamin D were also discussed. Her last bone density test was in 2013 and was normal. I have recommended doing another bone density test and the order slip was given to the patient for this. 5. We have discussed how certain types of vaginitis can cause vaginal odor and if she is having significant vaginal odor and urine culture is negative or only shows vaginal nadege at the time of urinary odor, she can call to be evaluated for vaginitis. We have also discussed the option of estrogen vaginal cream to see if this helps with frequent urinary tract infections. She will consider this if she continues to have frequent urinary tract infections after evaluation and treatment with her urologist. 6. She was advised to return in one year for her annual well woman exam and as needed.
--- NOTE | 2022-02-11 17:31 | MM ---
Reason for Exam: Screening (asymptomatic). Last mammogram was performed 1 year(s) and 4 month(s) ago. Patient History: Menarche at age 10. First Full-Term at age 19. Postmenopausal. Other cancer, age 34. Maternal cousin had breast cancer. Mother had breast cancer. Risk Values: Vera 5 year model risk: 3.2%. NCI Lifetime model risk: 14.0%. Prior Study Comparison: 09/19/2019 Bilateral Screening Mammogram, [facility]. 10/15/2020 Bilateral Screening Mammogram, [facility]. 05/28/2021 Right Diagnostic Mammogram, [facility]. Tissue Density: The breast tissue is heterogeneously dense. This may lower the sensitivity of mammography. Findings: Analyzed By CAD. Pattern appears symmetrical and stable. No significant interval change is evident. No suspicious groups of microcalcifications, spiculated or lobular masses, architectural distortion or other secondary signs of malignancy are mammographically apparent. Overall Assessment: Benign, BI-RAD 2 Management: Screening Mammogram of both breasts in 1 year. A negative mammogram report should not preclude additional follow up of suspicious palpable abnormalities. Patient should continue monthly self breast exam. A clinical breast exam by your physician is recommended on an annual basis and results should be correlated with mammographic findings. Electronically signed and approved by: Edgardo Chau D.O. Radiologis
== END ==
LOC: WWCWWP 09:33
PROVIDERS: ATTEND Obstetrics & Gynecology
DX: Z12.31 Encounter for screening mammogram for malignant neoplasm of breast (principal); Z01.411 Encounter for gynecological examination (general) (routine) with abnormal findings; J45.909 Unspecified asthma, uncomplicated; E11.9 Type 2 diabetes mellitus without complications; K21.9 Gastro-esophageal reflux disease without esophagitis; M54.50 Low back pain, unspecified; E78.5 Hyperlipidemia, unspecified; R10.30 Lower abdominal pain, unspecified; I10 Essential (primary) hypertension; M19.90 Unspecified osteoarthritis, unspecified site; Z91.041 Radiographic dye allergy status; Z79.84 Long term (current) use of oral hypoglycemic drugs; Z79.82 Long term (current) use of aspirin; Z87.440 Personal history of urinary (tract) infections; Z78.0 Asymptomatic menopausal state
CPT/HCPCS: 77063; 77067

== ENCOUNTER → 2022-02-16 | Outpatient (CLI) | payer MEDICARE ==
--- NOTE | 2022-02-17 10:08 | BD ---
EXAMINATION TYPE: Axial Bone Density DATE OF EXAM: 02/16/2022 COMPARISON: NONE CLINICAL HISTORY: 61 years year old Female. ICD-10 CODE: Z78.0 POSTMENOPAUSAL Height: 5 FT 3 IN Weight: 199 FRAX RISK QUESTIONS: Alcohol (3 or more units per day): NO Family History (Parent hip fracture): NO Glucocorticoids (More than 3mos): YES (Ex: prednisone, prednisolone, methylprednisolone, dexamethasone, and hydrocortisone). History of Fracture in Adulthood: YES Secondary Osteoporosis: 1. Type 1 Diabetes: NO 2. Hyperthyroidism: NO 3. Menopause before 45: NO 4. Malnutrition: NO 5. Chronic liver disease: NO Rheumatoid Arthritis: NO Current Tobacco Use: NO RISK FACTORS HISTORY OF: Surgery to Spine/Hip(right/left)/Wrist (right/left): NO Family History of Osteoporosis: NO Active: NO Diet low in dairy products/other sources of calcium: NO Postmenopausal woman: YES Take estrogen and/or progesterone medications: NO Lost more than 2 inches in height since high school: NO Frequent falls: NO Poor Health: GOOD Hyperparathyroidism: NO Adrenal Insufficiency: NO MEDICATIONS: Additional Medications: IBUPROFEN, FLEXERIL, METFORMIN, OXY BUTIN, GABAPENTIN, MONTELUKAST, SIMVASTA TIN, ZETIA, LORATIDINE, LOSARTAN, OMEPRAZOLE, ASPRIN,BIOTIN, PROBIOTIC, Additional History: EXAM MEASUREMENTS: Bone mineral densitometry was performed using the [employer]. Bone mineral density as measured about the Lumbar spine is: ----- L1-L4(G/cm2): 1.319 T Score Values are as follows: ----- L1: 0.6 ----- L2: 0.6 ----- L3: 1.4 ----- L4: 1.7 ----- L1-L4: 1.2 Bone mineral density has: INCREASED 8.4 % since study of: 2013 Bone mineral density about the R hip (g/cm2): 0.829 Bone mineral density about the L hip (g/cm2): 0.875 T Score values are as follows: -----R Neck: -1.5 -----L Neck: -1.2 -----R Total: 0.0 -----L Total: 0.5 Bone mineral density has: DECREASED -6.0 % since study of: 2014 FRAX%s: The graph provided illustrates a 13.4 % chance for a major osteoporotic fx and a 1.2 % chance for the hips probability for fx in 10 years time. IMPRESSION: Osteopenia (T Score between -2.5 and -1). There is slightly increased risk of fracture and the patient may be considered for treatment. Re-Screen 2-5 years. NOTE: T-SCORE=SD OF THE YOUNG ADULT MEAN.
== END | disposition home or self-care (01) ==
LOC: RADBDWWP 14:54
PROVIDERS: ATTEND Obstetrics & Gynecology
DX: M85.89 Other specified disorders of bone density and structure, multiple sites (principal); Z78.0 Asymptomatic menopausal state
CPT/HCPCS: 77080

== ENCOUNTER 2023-11-08 12:55 | Emergency (ER) | payer MEDICARE ==
[2023-11-08] MEDS: ACETAMINOPHEN TAB 325 MG TAB PO STA (13:19)
[2023-11-08] MEDS: SODIUM CHLORIDE 0.9% 1,000 ML IV STA (13:20)
--- NOTE | 2023-11-08 13:31 | ED ---
Abdominal Pain HPI - General Chief Complaint: Abdominal Pain Stated Complaint: Back pain Time Seen by Provider: 11/08/23 13:28 Source: patient, RN notes reviewed Mode of arrival: ambulatory Limitations: no limitations - History of Present Illness Initial Comments: 63-year-old female presented to ER with a chief complaint of left flank pain. She states she has been having intermittent left flank pain for approximately 2 months. She states 2 weeks ago she started to noticed a Mountain Dew colored urine and was started on antibiotics, cefuroxime, by PCP. Patient states weird discoloration of urine improved for approximately 1 to 2 days then returned. She was seen by PCP again and started on Macrobid. Patient denies any fevers. She does report intermittent chills, nausea and feeling fatigued. She denies any abdominal pain or radiation of flank pain. No hematuria, diarrhea, constipation, vomiting or other complaints. No shortness of breath or chest pain. - Related Data Home Medications Medication Instructions Recorded Confirmed Cyclobenzaprine [Flexeril] 10 mg PO TID 03/25/15 02/10/22 Glucosam/Dante-Msm1/C/Mukul/Bosw 1 tab PO QAM 03/25/15 02/10/22 [Glucosamine-Chondroitin Tablet] Loratadine [Claritin] 10 mg PO QAM 03/25/15 02/10/22 Montelukast [Singulair] 10 mg PO DAILY@1600 03/25/15 02/10/22 Simvastatin [Zocor] 20 mg PO QAM 03/25/15 02/10/22 Ezetimibe [Zetia] 10 mg PO DAILY 05/08/16 02/10/22 L.acidoph,Paracasei, B.lactis 1 each PO DAILY 06/07/18 02/10/22 [Probiotic] metFORMIN HCL [Glucophage] 500 mg PO BID 06/07/18 02/10/22 Biotin 10,000 mcg PO QAM 09/19/19 02/10/22 Ibuprofen 800 mg PO Q8H 09/19/19 02/10/22 Oxybutynin Chloride [Oxybutynin 10 mg PO QAM 09/19/19 02/10/22 Chloride ER] Ascorbic Acid [Vitamin C] 500 mg PO DAILY 05/10/20 02/10/22 Aspirin 325 mg PO DAILY 05/10/20 02/10/22 Cider Vinegar [Apple Cider Vinegar] 300 mg PO DAILY 05/10/20 02/10/22 Cranberry Fruit Extract [Cranberry] 500 mg PO DAILY 05/10/20 02/10/22 Gabapentin [Neurontin] 300 mg PO TID 05/10/20 02/10/22 Omeprazole [PriLOSEC] 40 mg PO DAILY 05/10/20 02/10/22 Calcium Carbonate [Calcium] 600 mg PO DAILY 10/15/20 02/10/22 Cholecalciferol [Vitamin D3 (25 25 mcg PO DAILY 10/15/20 02/10/22 Mcg = 1000 Iu)] Rosuvastatin [Crestor] 20 mg PO DAILY 02/10/22 02/10/22 Previous Rx's Medication Instructions Recorded Losartan [Cozaar] 50 mg PO DAILY #0 tab 05/13/16 Nitrofurantoin Monohyd/M-Cryst 100 mg PO Q12HR 7 Days #14 cap 10/16/20 [Macrobid] Cephalexin [Keflex] 500 mg PO Q6HR #40 cap 11/08/23 Allergies Allergy/AdvReac Type Severity Reaction Status Date / Time Iodine and Iodide Containing Allergy burning Verified 11/08/23 12:59 Produc Review of Systems ROS Statement: Those systems with pertinent positive or pertinent negative responses have been documented in the HPI. ROS Other: All systems not noted in ROS Statement are negative. Past Medical History Past Medical History: Asthma, Cancer, Diabetes Mellitus, GERD/Reflux, Hyperlipidemia, Hypertension, Mitral Valve Prolapse (MVP), Neurologic Disorder, Osteoarthritis (OA) Additional Past Medical History / Comment(s): neuropathy in hands and feet, degenerative disc disease, skin ca shoulder 2013, mitral valve prolapse, type II diabetes, and seasonal allergies. 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 History of Any Multi-Drug Resistant Organisms: ESBL Date of last positivie culture/infection: 11/30/18 ESBL-E.coli MDRO Source:: Urine Past Surgical History: Adenoidectomy, Orthopedic Surgery, Tonsillectomy Additional Past Surgical History / Comment(s): left knee arthritis & tears repaired. Colonoscopy 2013(next after 10yr)., 2017 HAD TITANIUM NAIL/DUSTIN IN LT FEMUR Past Anesthesia/Blood Transfusion Reactions: Postoperative Nausea & Vomiting (PONV) Past Psychological History: No Psychological Hx Reported Smoking Status: Never smoker Past Alcohol Use History: Rare Past Drug Use History: None Reported - Past Family History Mother Family Medical History: Cancer, Congestive Heart Failure (CHF), Coronary Artery Disease (CAD), Diabetes Mellitus, Hyperlipidemia, Hypertension Additional Family Medical History / Comment(s): Breast cancer. Father Family Medical History: Coronary Artery Disease (CAD), Diabetes Mellitus, Hyperlipidemia, Hypertension Additional Family Medical History / Comment(s): passed during an angioplasty Daughter(s) Family Medical History: No Reported History Sister(s) Family Medical History: Cancer General Exam Limitations: no limitations General appearance: alert, in no apparent distress Respiratory exam: Present: normal lung sounds bilaterally. Absent: respiratory distress, wheezes, rales, rhonchi, stridor Cardiovascular Exam: Present: regular rate, normal rhythm, normal heart sounds. Absent: systolic murmur, diastolic murmur, rubs, gallop, clicks GI/Abdominal exam: Present: soft, normal bowel sounds. Absent: distended, tenderness, guarding, rebound, rigid Back exam: Present: normal inspection, full ROM, CVA tenderness (L) Neurological exam: Present: alert, oriented X3, CN II-XII intact Skin exam: Present: warm, dry, intact, normal color. Absent: rash Course Vital Signs 11/08/23 11/08/23 12:58 15:09 Temperature 98.2 F 97.4 F L Pulse Rate 81 76 Respiratory 20 18 Rate Blood Pressure 108/57 101/68 O2 Sat by Pulse 97 99 Oximetry Medical Decision Making - Medical Decision Making Was pt. sent in by a medical professional or institution (, PA, KEYSEATING MACHINE SET UP OPERATOR, urgent care, hospital, or fdc...) When possible be specific @ -No Did you speak to anyone other than the patient for history (EMS, parent, family, police, friend...)? What history was obtained from this source @ -No Did you review nursing and triage notes (agree or disagree)? Why? @ -I reviewed and agree with nursing and triage notes Were old charts reviewed (outside hosp., previous admission, EMS record, old EKG, old radiological studies, urgent care reports/EKG's, fdc records)? Report findings @ -No old charts were reviewed Differential Diagnosis (chest pain, altered mental status, abdominal pain women, abdominal pain men, vaginal bleeding, weakness, fever, dyspnea, syncope, headache, dizziness, GI bleed, back pain, seizure, CVA, palpatations, mental health, musculoskeletal)? @ -Differential Back Pain: Strain, zoster, cauda equina syndrome, epidural abscess, vertebral osteomyelitis, discitis, fracture, subluxation, disc herniation, DJD, spinal stenosis, dissection, AAA, pancreatitis, peptic ulcer disease, pyelonephritis, kidney stone, this is not meant to be an all-inclusive list. EKG interpreted by me (3pts min.). @ -None done X-rays interpreted by me (1pt min.). @ -None done CT interpreted by me (1pt min.). @ -CT abdomen pelvis negative for acute intra-abdominal/pelvic process. No evidence obstructive uropathy. Colonic diverticulosis. U/S interpreted by me (1pt. min.). @ -None done What testing was considered but not performed or refused? (CT, X-rays, U/S, labs)? Why? @ -None What meds were considered but not given or refused? Why? @ -None Did you discuss the management of the patient with other professionals (professionals i.e. , PA, KEYSEATING MACHINE SET UP OPERATOR, lab, RT, psych nurse, social insurance administrator, trial attorney, teacher, personal banking officer, case mgr)? Give summary @ -No Was smoking cessation discussed for >3mins.? @ -No Was critical care preformed (if so, how long)? @ -No Were there social determinants of health that impacted care today? How? (Home lessness, low income, unemployed, alcoholism, drug addiction, transportation, low edu. Level, literacy, decrease access to med. care, halfway, rehab)? @ -No Was there de-escalation of care discussed even if they declined (Discuss DNR or withdrawal of care, Hospice)? DNR status @ -No What co-morbidities impacted this encounter? (DM, HTN, Smoking, COPD, CAD, Cancer, CVA, ARF, Chemo, Hep., AIDS, mental health diagnosis, sleep apnea, morbid obesity)? @ -None Was patient admitted / discharged? Hospital course, mention meds given and route, prescriptions, significant lab abnormalities, going to OR and other pertinent info. @ -Discharge. 63-year-old female presented to ER with a chief complaint of left flank pain. History and physical exam completed. Vitals within the limits. Patient no signs acute distress and nontoxic-appearing. No focal abdominal tenderness. Normal bowel sounds. No rebound or guarding. Left CVA tenderness. No overlying skin changes. Laboratory studies and CT will be obtained, patient is agreeable to this. CBC unremarkable. CMP unimpressive. Urinalysis concerning of infection with 19 urine WBCs, moderate leukocyte esterase and positive nitrates. Urine will be sent for culture. Patient will be started on Keflex. Patient did receive IV Rocephin and Decadron prior to discharge. Upon reevaluation, patient resting comfortably in exam room no sign of acute distress. Results discussed with patient, all questions answered. Patient stable for discharge at this time. Return parameters discussed. Patient discharged in stable condition with follow-up to PCP. Patient verbally expressed understanding agreement care plan. Case discussed with ED attending, Dr. Glover. Undiagnosed new problem with uncertain prognosis? @ -No Drug Therapy requiring intensive monitoring for toxicity (Heparin, Nitro, Insulin, Cardizem)? @ -No Were any procedures done? @ -No Diagnosis/symptom? @ -UTI/flank pain Acute, or Chronic, or Acute on Chronic? @ -Acute Uncomplicated (without systemic symptoms) or Complicated (systemic symptoms)? @ -Uncomplicated Side effects of treatment? @ -No Exacerbation, Progression, or Severe Exacerbation? @ -No Poses a threat to life or bodily function? How? (Chest pain, USA, MA, pneumonia, PE, COPD, DKA, ARF, appy, cholecystitis, CVA, Diverticulitis, Homicidal, Suicidal, threat to staff... and all critical care pts) @ -No - Lab Data Result diagrams: 11/08/23 13:22 11/08/23 13:22 Lab Results 11/08/23 11/08/23 11/08/23 Range/Units 13:22 13:22 13:22 WBC 8.0 (3.8-10.6) k/uL RBC 4.42 (3.80-5.40) m/uL Hgb 13.7 (11.4-16.0) gm/dL Hct 42.8 (34.0-46.0) % MCV 96.8 (80.0-100.0) fL MCH 31.0 (25.0-35.0) pg MCHC 32.0 (31.0-37.0) g/dL RDW 14.3 (11.5-15.5) % Plt Count 355 (150-450) k/uL MPV 7.5 Neutrophils % 68 % Lymphocytes % 23 % Monocytes % 5 % Eosinophils % 1 % Basophils % 0 % Neutrophils # 5.4 (1.3-7.7) k/uL Lymphocytes # 1.8 (1.0-4.8) k/uL Monocytes # 0.4 (0-1.0) k/uL Eosinophils # 0.1 (0-0.7) k/uL Basophils # 0.0 (0-0.2) k/uL Sodium 135 L (137-145) mmol/L Potassium 4.7 (3.5-5.1) mmol/L Chloride 100 (98-107) mmol/L Carbon Dioxide 28 (22-30) mmol/L Anion Gap 7 mmol/L BUN 21 H (7-17) mg/dL Creatinine 0.97 (0.52-1.04) mg/dL Est GFR (CKD-EPI)AfAm 72 (>60 ml/min/1.73 sqM) Est GFR (CKD-EPI)NonAf 62 (>60 ml/min/1.73 sqM) Glucose 91 (74-99) mg/dL Plasma Lactic Acid Monico (0.7-2.0) mmol/L Calcium 10.1 (8.4-10.2) mg/dL Total Bilirubin 0.6 (0.2-1.3) mg/dL AST 33 (14-36) U/L ALT 24 (4-34) U/L Alkaline Phosphatase 47 (38-126) U/L Total Protein 7.4 (6.3-8.2) g/dL Albumin 4.5 (3.5-5.0) g/dL Urine Color Yellow Urine Appearance Clear (Clear) Urine pH 6.5 (5.0-8.0) Ur Specific [place] 1.011 (1.001-1.035) Urine Protein Negative (Negative) Urine Glucose (UA) Negative (Negative) Urine Ketones Negative (Negative) Urine Blood Negative (Negative) Urine Nitrite Positive H (Negative) Urine Bilirubin Negative (Negative) Urine Urobilinogen <2.0 (<2.0) mg/dL Ur Leukocyte Esterase Moderate H (Negative) Urine WBC 19 H (0-5) /hpf Ur Squamous Epith Cells 1 (0-4) /hpf Urine Bacteria Many H (None) /hpf Hyaline Casts 2 (0-2) /lpf Urine Mucus Rare H (None) /hpf 11/08/23 Range/Units 13:22 WBC (3.8-10.6) k/uL RBC (3.80-5.40) m/uL Hgb (11.4-16.0) gm/dL Hct (34.0-46.0) % MCV (80.0-100.0) fL MCH (25.0-35.0) pg MCHC (31.0-37.0) g/dL RDW (11.5-15.5) % Plt Count (150-450) k/uL MPV Neutrophils % % Lymphocytes % % Monocytes % % Eosinophils % % Basophils % % Neutrophils # (1.3-7.7) k/uL Lymphocytes # (1.0-4.8) k/uL Monocytes # (0-1.0) k/uL Eosinophils # (0-0.7) k/uL Basophils # (0-0.2) k/uL Sodium (137-145) mmol/L Potassium (3.5-5.1) mmol/L Chloride (98-107) mmol/L Carbon Dioxide (22-30) mmol/L Anion Gap mmol/L BUN (7-17) mg/dL Creatinine (0.52-1.04) mg/dL Est GFR (CKD-EPI)AfAm (>60 ml/min/1.73 sqM) Est GFR (CKD-EPI)NonAf (>60 ml/min/1.73 sqM) Glucose (74-99) mg/dL Plasma Lactic Acid Monico 1.2 (0.7-2.0) mmol/L Calcium (8.4-10.2) mg/dL Total Bilirubin (0.2-1.3) mg/dL AST (14-36) U/L ALT (4-34) U/L Alkaline Phosphatase (38-126) U/L Total Protein (6.3-8.2) g/dL Albumin (3.5-5.0) g/dL Urine Color Urine Appearance (Clear) Urine pH (5.0-8.0) Ur Specific [place] (1.001-1.035) Urine Protein (Negative) Urine Glucose (UA) (Negative) Urine Ketones (Negative) Urine Blood (Negative) Urine Nitrite (Negative) Urine Bilirubin (Negative) Urine Urobilinogen (<2.0) mg/dL Ur Leukocyte Esterase (Negative) Urine WBC (0-5) /hpf Ur Squamous Epith Cells (0-4) /hpf Urine Bacteria (None) /hpf Hyaline Casts (0-2) /lpf Urine Mucus (None) /hpf - Radiology Data Radiology results: report reviewed, image reviewed Disposition Clinical Impression: UTI (urinary tract infection), Left flank pain Disposition: HOME SELF-CARE Condition: Stable Instructions (If sedation given, give patient instructions): Urinary Tract Infection in Women (DC), Flank Pain (ED) Additional Instructions: Follow-up with PCP. Complete full course of antibiotics. Return to the ER for any new or worsening symptoms. Prescriptions: Cephalexin [Keflex] 500 mg PO Q6HR #40 cap Is patient prescribed a controlled substance at d/c from ED?: No Referrals: Edgardo Cox DO [Primary Care Provider] - 1-2 days Time of Disposition: 14:40
[2023-11-08 13:34] LABS: Basophils % (A) 0 %; Eosinophils # (A) 0.1 k/uL (0-0.7); Eosinophils % (A) 1 %; HCT 42.8 % (34.0-46.0); HGB 13.7 gm/dL (11.4-16.0); Lymphocytes # (A) 1.8 k/uL (1.0-4.8); Lymphocytes % (A) 23 %; MCV 96.8 fL (80.0-100.0); Mean Platelet Volume 7.5; Monocytes # (A) 0.4 k/uL (0-1.0); Monocytes % (A) 5 %; Neutrophils # (A) 5.4 k/uL (1.3-7.7); Neutrophils % (A) 68 %; Platelet Count 355 k/uL (150-450); RBC 4.42 m/uL (3.80-5.40); RDW 14.3 % (11.5-15.5)
[2023-11-08 13:53] LABS: ALT 24 U/L (4-34); African American GFR (CKD) 72 (>60 ml/min/1.73 sqM); Albumin 4.5 g/dL (3.5-5.0); Anion Gap 7 mmol/L; Blood Urea Nitrogen 21 mg/dL (7-17); Calcium 10.1 mg/dL (8.4-10.2); Carbon Dioxide 28 mmol/L (22-30); Chloride 100 mmol/L (98-107); Glucose 91 mg/dL (74-99); Non-African American GFR(CKD) 62 (>60 ml/min/1.73 sqM); Sodium 135 mmol/L (137-145); Total Bilirubin 0.6 mg/dL (0.2-1.3); Total Protein 7.4 g/dL (6.3-8.2)
--- NOTE | 2023-11-08 13:53 | CT ---
EXAMINATION TYPE: CT abdomen pelvis wo con CT DLP: 707.5 mGycm, Automated exposure control for dose reduction was used. DATE OF EXAM: 11/08/2023 1:46 PM COMPARISON: CT chest abdomen and pelvis 05/08/2016 CLINICAL INDICATION:Female, 63 years old with history of left flank pain; BILATERAL FLANK PAIN TECHNIQUE: Standard CT of the abdomen and pelvis without IV or oral contrast. Lack of IV or oral co ntrast limits evaluation of solid and hollow organ viscera. Coronal and sagittal reformats were perfo rmed. FINDINGS: LOWER CHEST: Unremarkable ABDOMEN LIVER: Unremarkable noncontrast appearance GALLBLADDER AND BILE DUCTS: Unremarkable noncontrast appearance PANCREAS: Unremarkable noncontrast appearance SPLEEN: Unremarkable noncontrast appearance ADRENAL GLANDS: Unremarkable noncontrast appearance. KIDNEYS AND URETERS: No evidence of hydronephrosis or renal calculus. No ureteric calculi identified. No perinephric fluid collections and surrounding fat stranding. PELVIS BLADDER: Unremarkable REPRODUCTIVE: Unremarkable. ABDOMEN & PELVIS STOMACH AND BOWEL: Stomach and duodenum are unremarkable. No focal wall thickening or stranding infla mmatory changes. The appendix is identified and identified however no significant inflammatory change s within the right lower quadrant. Scattered proximal colonic diverticulosis. No evidence of bowel ob struction. PERITONEUM: No evidence of pneumoperitoneum or free fluid. VASCULATURE: No evidence of aortic aneurysm. Few tiny pelvic phlebolith. MUSCULOSKELETAL: No acute osseous abnormalities. Moderate multilevel degenerative disc disease. S-sha ped scoliotic curvature of the thoracolumbar spine. LYMPH NODES: No gross evidence for lymphadenopathy. SOFT TISSUE/ABDOMINAL WALL: Unremarkable IMPRESSION: 1. No CT evidence for acute abdominal/pelvic process within limitations of a noncontrast exam. No ev idence for obstructive uropathy. 2. Colonic diverticulosis. [facility], , 11/08/2023 1:51 PM
[2023-11-08 13:56] LABS: Appearance,Urine Clear (Clear); Bacteria,Urine Many /hpf; Bilirubin,Urine Negative (Negative); Blood,Urine Negative (Negative); Color,Urine Yellow; Glucose,Urine (UA) Negative (Negative); Hyaline Casts,Urine 2 /lpf (0-2); Ketones,Urine Negative (Negative); Leukocyte Esterase,Urine Moderate (Negative); Mucus,Urine Rare /hpf; Nitrite,Urine Positive (Negative); PH, Urine 6.5 (5.0-8.0); Protein,Urine Negative (Negative); Specific Gravity,Urine 1.011 (1.001-1.035); Squamous Epithelial Cell,Urine 1 /hpf (0-4); Urobilinogen,Urine <2.0 mg/dL (<2.0); WBC,Urine 19 /hpf (0-5)
[2023-11-08 14:09] LABS: AST 33 U/L (14-36); Alkaline Phosphatase 47 U/L (38-126); Potassium 4.7 mmol/L (3.5-5.1)
[2023-11-08] MEDS: cefTRIAXone IN SWFI 1,000 MG/10 ML SYRINGE IVP STA (14:52)
[2023-11-08] MEDS: DEXAMETHASONE SOD PHOSPHATE 4 MG/ML 1 ML VIAL IVP STA (14:53)
[2023-11-08 15:11] VITALS: BP 101/68; PULSE 76; RESP 18; TEMP 97.4
== END 2023-11-08 15:11 | disposition home or self-care (01) ==
LOC: EC 12:55
CPT/HCPCS: 36415; 74176; 80053; 81001; 83605; 85025; 87077; 87086; 87186; 96361; 96374; 96375; 99284

== ENCOUNTER 2023-11-11 16:06 | Inpatient (IN) | payer MEDICARE ==
--- NOTE | 2023-11-11 16:55 | ED ---
Recheck HPI - General Chief Complaint: Recheck/Abnormal Lab/Rx Stated Complaint: IV antibiotics order from [facility] Time Seen by Provider: 11/11/23 16:11 Source: patient, RN notes reviewed Mode of arrival: ambulatory Limitations: no limitations - History of Present Illness Initial Comments: This is a 63-year-old female who presents to the emergency department for an abnormal urine culture. Patient has been dealing with a UTI for the last 2 months. This has resulted in a significant increase in urinary frequency, intermittent left flank pain, along with dark and foul-smelling urine. She was evaluated here on 11/07 and her urine was sent for culture. She received a call today saying that the urine was essentially resistant to everything aside from IV antibiotics and was sent to the emergency department for treatment. She was given a prescription for Keflex when she was here a few days ago. This was the fourth round of antibiotics she was put on. She has not had relief with any of the treatments. States that she feels very rundown and fatigued as well and has little to no energy. MD Complaint: needs IV antibiotics - Related Data Home Medications Medication Instructions Recorded Confirmed Cyclobenzaprine [Flexeril] 10 mg PO TID 03/25/15 11/11/23 Loratadine [Claritin] 10 mg PO DAILY 03/25/15 11/11/23 Montelukast [Singulair] 10 mg PO DAILY@1730 03/25/15 11/11/23 Ezetimibe [Zetia] 10 mg PO HS 05/08/16 11/11/23 metFORMIN HCL [Glucophage] 500 mg PO HS 06/07/18 11/11/23 Oxybutynin Chloride [Oxybutynin 10 mg PO HS 09/19/19 11/11/23 Chloride ER] Cranberry Fruit Extract [Cranberry] 500 mg PO BID 05/10/20 11/11/23 Omeprazole [PriLOSEC] 40 mg PO DAILY 05/10/20 11/11/23 Cholecalciferol [Vitamin D3 (25 50 mcg PO DAILY 10/15/20 11/11/23 Mcg = 1000 Iu)] Rosuvastatin [Crestor] 20 mg PO HS 02/10/22 11/11/23 Acetaminophen [Tylenol Arthritis] 1,300 mg PO Q6H PRN 11/11/23 11/11/23 Aspirin EC [Ecotrin Low Dose] 81 mg PO DAILY@1730 11/11/23 11/11/23 Benzonatate [Tessalon Perle] 200 mg PO DIRECTED PRN 11/11/23 11/11/23 Biotin/Keratin 10,000mg 1 tab PO DAILY@1730 11/11/23 11/11/23 Calcium 1,000mg 3,000 mg PO DAILY@1730 11/11/23 11/11/23 DULoxetine HCL [Cymbalta] 60 mg PO HS 11/11/23 11/11/23 Fenofibrate [Lofibra] 160 mg PO DAILY@1730 11/11/23 11/11/23 Gabapentin 300 mg PO TID 11/11/23 11/11/23 Losartan-Hctz 50-12.5 mg [Hyzaar 1 tab PO DAILY 11/11/23 11/11/23 50-12.5] metFORMIN HCL [Glucophage] 1,000 mg PO DAILY 11/11/23 11/11/23 valACYclovir HCL [Valtrex] 1,000 mg PO DIRECTED PRN 11/11/23 11/11/23 Previous Rx's Medication Instructions Recorded Cephalexin [Keflex] 500 mg PO Q6HR #40 cap 11/08/23 Allergies Allergy/AdvReac Type Severity Reaction Status Date / Time Iodine and Iodide Containing Allergy burning Verified 11/11/23 16:10 Produc Review of Systems ROS Statement: Those systems with pertinent positive or pertinent negative responses have been documented in the HPI. ROS Other: All systems not noted in ROS Statement are negative. Past Medical History Past Medical History: Asthma, Cancer, Diabetes Mellitus, GERD/Reflux, Hyperlipidemia, Hypertension, Mitral Valve Prolapse (MVP), Neurologic Disorder, Osteoarthritis (OA) Additional Past Medical History / Comment(s): neuropathy in hands and feet, degenerative disc disease, skin ca shoulder 2013, mitral valve prolapse, type II diabetes, and seasonal allergies. 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 History of Any Multi-Drug Resistant Organisms: ESBL Date of last positivie culture/infection: 11/30/18 ESBL-E.coli MDRO Source:: Urine Past Surgical History: Adenoidectomy, Orthopedic Surgery, Tonsillectomy Additional Past Surgical History / Comment(s): left knee arthritis & tears repaired. Colonoscopy 2013(next after 10yr)., 2017 HAD TITANIUM NAIL/DUSTIN IN LT FEMUR Past Anesthesia/Blood Transfusion Reactions: Postoperative Nausea & Vomiting (PONV) Past Psychological History: No Psychological Hx Reported Smoking Status: Never smoker Past Alcohol Use History: Rare Past Drug Use History: None Reported - Past Family History Mother Family Medical History: Cancer, Congestive Heart Failure (CHF), Coronary Artery Disease (CAD), Diabetes Mellitus, Hyperlipidemia, Hypertension Additional Family Medical History / Comment(s): Breast cancer. Father Family Medical History: Coronary Artery Disease (CAD), Diabetes Mellitus, Hyperlipidemia, Hypertension Additional Family Medical History / Comment(s): passed during an angioplasty Daughter(s) Family Medical History: No Reported History Sister(s) Family Medical History: Cancer General Exam Limitations: no limitations General appearance: alert, in no apparent distress Head exam: Present: atraumatic, normocephalic, normal inspection Respiratory exam: Present: normal lung sounds bilaterally. Absent: respiratory distress, wheezes, rales, rhonchi, stridor Cardiovascular Exam: Present: regular rate, normal rhythm, normal heart sounds. Absent: systolic murmur, diastolic murmur, rubs, gallop, clicks GI/Abdominal exam: Present: soft, normal bowel sounds. Absent: distended, tenderness, guarding, rebound, rigid Back exam: Present: CVA tenderness (L). Absent: CVA tenderness (R) Neurological exam: Present: alert, oriented X3, CN II-XII intact Psychiatric exam: Present: normal affect, normal mood Skin exam: Present: warm, dry, intact, normal color. Absent: rash Course Vital Signs 11/11/23 11/11/23 11/11/23 16:08 17:10 21:49 Temperature 98.0 F 97.7 F 97.8 F Pulse Rate 107 H 92 89 Respiratory 20 17 18 Rate Blood Pressure 120/76 110/71 155/94 O2 Sat by Pulse 98 95 96 Oximetry Medical Decision Making - Medical Decision Making This is a 63-year-old female who presents to the emergency department for a UTI and failure of outpatient management. Was pt. sent in by a medical professional or institution? @ -No Did you speak to anyone other than the patient for history? @ -No Did you review nursing and triage notes? @ -Yes, and I agree, it is accurate with regards to the patient's symptoms. Were old charts reviewed? @ -Urine culture from 11/07 which grew E. coli. Bacteria was found to be susceptible to amikacin, ertapenem, gentamicin, imipenem, meropenem, tigecycline, tobramycin, and Zosyn. Differential Diagnosis? @ -Differential Flank Pain: UTI, pyelonephritis, kidney stone, musculoskeletal, pancreatitis, cholecystitis, this is not meant to be an all-inclusive list. EKG interpreted by me (3pts min.)? @ -Not obtained X-rays interpreted by me (1pt min.)? @ -Not obtained CT interpreted by me (1pt min.)? @ -Not obtained U/S interpreted by me (1pt. min.)? @ -Not obtained What testing was considered but not performed? (CT, X-rays, U/S, labs)? Why? @ -None What meds were considered but not given? Why? @ -None Did you discuss the management of the patient with other professionals? @ -Yes, Dr. Edwards, who accepts the patient for admission. Did you reconcile home meds? @ -Yes Was smoking cessation discussed for >3mins.? @ -No Was critical care preformed (if so, how long)? @ -No Were there social determinants of health that impacted care today? How? (Homelessness, low income, unemployed, alcoholism, drug addiction, trans portation, low edu. Level, literacy, decrease access to med. care, fci, rehab)? @ -No Was there de-escalation of care discussed even if they declined? (Discuss DNR or withdrawal of care, Hospice)? @ -No What co-morbidities impacted this encounter? (DM, HTN, Smoking, COPD, CAD, Cancer, CVA, Hep., AIDS, mental health diagnosis, sleep apnea, morbid obesity)? @ -DM, HLD, HTN Was patient admitted / discharged? @ -Admitted. I reviewed the patient's urine culture from 11/07. The urine grew E. coli and it does appear that the bacteria is essentially only susceptible to IV antibiotics. Lab work demonstrates an elevated lactic acid of 2.1 and was otherwise unremarkable. Urinalysis obtained here is still consistent with infection with positive nitrites and many bacteria. Urine was again sent for culture. Blood culture obtained as well. She was started on Zosyn, which was shown to be effective based on urine culture from a couple of days ago. Patient admitted to medicine for UTI with failure of outpatient management. Case discussed with ED attending Dr. Garvin. Undiagnosed new problem with uncertain prognosis? @ -None Drug Therapy requiring intensive monitoring for toxicity (Heparin, Nitro, Insulin, Cardizem)? @ -None Were any procedures done? @ -None Diagnosis/symptom? @ -UTI, failure of outpatient management Acute, or Chronic, or Acute on Chronic? @ -Acute Uncomplicated (without systemic symptoms) or Complicated (systemic symptoms)? @ -Complicated Side effects of treatment? @ -None Exacerbation, Progression, or Severe Exacerbation] @ -Not applicable Poses a threat to life or bodily function? @ -Yes, can lead to sepsis, which can lead to . - Lab Data Result diagrams: 11/11/23 16:44 11/11/23 16:44 Lab Results 11/11/23 11/11/23 11/11/23 Range/Units 16:44 16:44 16:44 WBC 8.0 (3.8-10.6) k/uL RBC 4.22 (3.80-5.40) m/uL Hgb 13.1 (11.4-16.0) gm/dL Hct 40.8 (34.0-46.0) % MCV 96.7 (80.0-100.0) fL MCH 30.9 (25.0-35.0) pg MCHC 32.0 (31.0-37.0) g/dL RDW 14.2 (11.5-15.5) % Plt Count 377 (150-450) k/uL MPV 7.9 Neutrophils % 60 % Lymphocytes % 29 % Monocytes % 5 % Eosinophils % 1 % Basophils % 0 % Neutrophils # 4.8 (1.3-7.7) k/uL Lymphocytes # 2.3 (1.0-4.8) k/uL Monocytes # 0.4 (0-1.0) k/uL Eosinophils # 0.1 (0-0.7) k/uL Basophils # 0.0 (0-0.2) k/uL PT 10.5 (10.0-12.5) sec INR 0.9 (<1.2) APTT 24.3 (22.0-30.0) sec Sodium (137-145) mmol/L Potassium (3.5-5.1) mmol/L Chloride (98-107) mmol/L Carbon Dioxide (22-30) mmol/L Anion Gap mmol/L BUN (7-17) mg/dL Creatinine (0.52-1.04) mg/dL Est GFR (CKD-EPI)AfAm (>60 ml/min/1.73 sqM) Est GFR (CKD-EPI)NonAf (>60 ml/min/1.73 sqM) Glucose (74-99) mg/dL Lactic Ac Sepsis Rflx Plasma Lactic Acid Monico (0.7-2.0) mmol/L Calcium (8.4-10.2) mg/dL Total Bilirubin (0.2-1.3) mg/dL AST (14-36) U/L ALT (4-34) U/L Alkaline Phosphatase (38-126) U/L Total Protein (6.3-8.2) g/dL Albumin (3.5-5.0) g/dL Urine Color Colorless Urine Appearance Clear (Clear) Urine pH 6.0 (5.0-8.0) Ur Specific [place] 1.014 (1.001-1.035) Urine Protein Negative (Negative) Urine Glucose (UA) Negative (Negative) Urine Ketones 1+ H (Negative) Urine Blood Negative (Negative) Urine Nitrite Positive H (Negative) Urine Bilirubin Negative (Negative) Urine Urobilinogen 4.0 (<2.0) mg/dL Ur Leukocyte Esterase Small H (Negative) Urine RBC <1 (0-5) /hpf Urine WBC 21 H (0-5) /hpf Ur Squamous Epith Cells <1 (0-4) /hpf Urine Bacteria Many H (None) /hpf Urine Mucus Few H (None) /hpf 11/11/23 11/11/23 11/11/23 Range/Units 16:44 16:44 17:36 WBC (3.8-10.6) k/uL RBC (3.80-5.40) m/uL Hgb (11.4-16.0) gm/dL Hct (34.0-46.0) % MCV (80.0-100.0) fL MCH (25.0-35.0) pg MCHC (31.0-37.0) g/dL RDW (11.5-15.5) % Plt Count (150-450) k/uL MPV Neutrophils % % Lymphocytes % % Monocytes % % Eosinophils % % Basophils % % Neutrophils # (1.3-7.7) k/uL Lymphocytes # (1.0-4.8) k/uL Monocytes # (0-1.0) k/uL Eosinophils # (0-0.7) k/uL Basophils # (0-0.2) k/uL PT (10.0-12.5) sec INR (<1.2) APTT (22.0-30.0) sec Sodium 135 L (137-145) mmol/L Potassium 5.2 H (3.5-5.1) mmol/L Chloride 105 (98-107) mmol/L Carbon Dioxide 24 (22-30) mmol/L Anion Gap 6 mmol/L BUN 28 H (7-17) mg/dL Creatinine 1.04 (0.52-1.04) mg/dL Est GFR (CKD-EPI)AfAm 66 (>60 ml/min/1.73 sqM) Est GFR (CKD-EPI)NonAf 57 (>60 ml/min/1.73 sqM) Glucose 95 (74-99) mg/dL Lactic Ac Sepsis Rflx Y Plasma Lactic Acid Monico 2.1 H* (0.7-2.0) mmol/L Calcium 10.5 H (8.4-10.2) mg/dL Total Bilirubin 0.8 (0.2-1.3) mg/dL AST 43 H (14-36) U/L ALT 25 (4-34) U/L Alkaline Phosphatase 41 (38-126) U/L Total Protein 7.2 (6.3-8.2) g/dL Albumin 4.4 (3.5-5.0) g/dL Urine Color Urine Appearance (Clear) Urine pH (5.0-8.0) Ur Specific [place] (1.001-1.035) Urine Protein (Negative) Urine Glucose (UA) (Negative) Urine Ketones (Negative) Urine Blood (Negative) Urine Nitrite (Negative) Urine Bilirubin (Negative) Urine Urobilinogen (<2.0) mg/dL Ur Leukocyte Esterase (Negative) Urine RBC (0-5) /hpf Urine WBC (0-5) /hpf Ur Squamous Epith Cells (0-4) /hpf Urine Bacteria (None) /hpf Urine Mucus (None) /hpf Disposition Clinical Impression: UTI (urinary tract infection), Failure of outpatient treatment Disposition: ADMITTED IP TO THIS HOSP
[2023-11-11] MEDS: PIPERACILLIN-TAZOBACTAM 3.375 GM in SODIUM CHLORIDE 0.9% 100 ML IVPB SCH (16:59)
[2023-11-11] MEDS: SODIUM CHLORIDE 0.9% 1,000 ML IV STA (17:00)
[2023-11-11 17:22] LABS: Basophils % (A) 0 %; Eosinophils # (A) 0.1 k/uL (0-0.7); Eosinophils % (A) 1 %; HCT 40.8 % (34.0-46.0); HGB 13.1 gm/dL (11.4-16.0); Lymphocytes # (A) 2.3 k/uL (1.0-4.8); Lymphocytes % (A) 29 %; MCH 30.9 pg (25.0-35.0); MCV 96.7 fL (80.0-100.0); Mean Platelet Volume 7.9; Monocytes # (A) 0.4 k/uL (0-1.0); Monocytes % (A) 5 %; Neutrophils # (A) 4.8 k/uL (1.3-7.7); Neutrophils % (A) 60 %; Platelet Count 377 k/uL (150-450); RBC 4.22 m/uL (3.80-5.40); RDW 14.2 % (11.5-15.5)
[2023-11-11 17:26] LABS: Appearance,Urine Clear (Clear); Bacteria,Urine Many /hpf; Bilirubin,Urine Negative (Negative); Blood,Urine Negative (Negative); Color,Urine Colorless; Glucose,Urine (UA) Negative (Negative); Ketones,Urine 1+ (Negative); Leukocyte Esterase,Urine Small (Negative); Mucus,Urine Few /hpf; Nitrite,Urine Positive (Negative); Protein,Urine Negative (Negative); RBC,Urine <1 /hpf (0-5); Specific Gravity,Urine 1.014 (1.001-1.035); Squamous Epithelial Cell,Urine <1 /hpf (0-4); WBC,Urine 21 /hpf (0-5)
[2023-11-11 17:33] LABS: ALT 25 U/L (4-34); African American GFR (CKD) 66 (>60 ml/min/1.73 sqM); Anion Gap 6 mmol/L; Blood Urea Nitrogen 28 mg/dL (7-17); Calcium 10.5 mg/dL (8.4-10.2); Carbon Dioxide 24 mmol/L (22-30); Chloride 105 mmol/L (98-107); Glucose 95 mg/dL (74-99); Non-African American GFR(CKD) 57 (>60 ml/min/1.73 sqM); Sodium 135 mmol/L (137-145); Total Bilirubin 0.8 mg/dL (0.2-1.3)
[2023-11-11 17:43] LABS: INR 0.9 (<1.2); Partial Thromboplastin Time 24.3 sec (22.0-30.0); Prothrombin Time 10.5 sec (10.0-12.5)
[2023-11-11 17:47] LABS: Potassium 5.2 mmol/L (3.5-5.1); Total Protein 7.2 g/dL (6.3-8.2)
[2023-11-11 17:48] LABS: AST 43 U/L (14-36); Albumin 4.4 g/dL (3.5-5.0); Alkaline Phosphatase 41 U/L (38-126)
[2023-11-11] MEDS ORDERED: HYDROcodone/APAP 5-325MG 1 EACH TAB PO PRN (18:14)
[2023-11-11] MEDS ORDERED: NALOXONE 0.4 MG/ML 1 ML VIAL IV PRN (18:14)
[2023-11-11] MEDS ORDERED: ACETAMINOPHEN TAB 325 MG TAB PO PRN (18:14)
[2023-11-11] MEDS ORDERED: ONDANSETRON 4 MG/2 ML VIAL IVP PRN (18:14)
[2023-11-11] MEDS ORDERED: BENZONATATE 100 MG CAP PO PRN (18:15)
[2023-11-11] MEDS: ATORVASTATIN 40 MG TAB PO SCH (20:50)
[2023-11-11] MEDS: metFORMIN 500 MG TAB PO SCH (20:50)
[2023-11-11] MEDS: DULoxetine HCL 60 MG CAPSULE.DR PO SCH (20:50)
[2023-11-11] MEDS: EZETIMIBE 10 MG TAB PO SCH (20:50)
[2023-11-11] MEDS ORDERED: NON FORMULARY DRUG (Cranberry Fruit Extract [Cranberry] 500 MG Tablet) PO SCH (21:00)
[2023-11-11] MEDS: OXYBUTYNIN 10 MG TAB.ER.24 PO SCH (21:02)
[2023-11-11] MEDS: CYCLOBENZAPRINE 10 MG TAB PO SCH (21:02)
[2023-11-11] MEDS: GABAPENTIN 300 MG CAP PO SCH (21:03)
[2023-11-11] MEDS: ACETAMINOPHEN TAB 325 MG TAB PO PRN (21:27)
[2023-11-11] MEDS: SODIUM CHLORIDE 0.9% 1,000 ML IV SCH (22:50)
[2023-11-12] MEDS: MORPHINE SULFATE 4 MG/ML SYRINGE IV PRN (00:50)
[2023-11-12] MEDS: CHOLECALCIFEROL 25 MCG (1000 IU) TABLET PO SCH (08:34)
[2023-11-12] MEDS: LORATADINE 10 MG TAB PO SCH (08:34)
[2023-11-12] MEDS: PANTOPRAZOLE 40 MG TABLET PO SCH (08:34)
[2023-11-12] MEDS: metFORMIN 500 MG TAB PO SCH (08:35)
[2023-11-12] MEDS ORDERED: PANTOPRAZOLE 40 MG/10 ML VIAL IV SCH (09:00)
[2023-11-12] MEDS: LOSARTAN-HCTZ 50-12.5 MG 1 EACH TAB PO SCH (10:18)
[2023-11-12] MEDS ORDERED: IOPAMIDOL CONTRAST (ORAL USE) VIAL PO PRN (11:21)
[2023-11-12 11:27] LABS: Glucose,Whole Blood 95 mg/dL (70-110)
[2023-11-12] MEDS ORDERED: ACYCLOVIR 800 MG TAB PO SCH (11:30)
[2023-11-12] MEDS: ENOXAPARIN 40 MG/0.4 ML SYRINGE SQ SCH (11:33)
[2023-11-12] MEDS: MULTIVITAMINS, THERA 1 EACH TAB PO SCH (12:21)
[2023-11-12] MEDS: methylPREDNISolone SOD SUCCI 125 MG/2 ML VIAL IV ONE (12:23)
[2023-11-12] MEDS: NYSTATIN 100,000 UNIT/GM POWD 15 GM TOPICAL SCH (14:06)
[2023-11-12] MEDS: BARIUM SULFATE 2% - 450 ML ORAL.SUSP BOTTLE PO PRN (14:06)
[2023-11-12 16:38] LABS: Glucose,Whole Blood 138 mg/dL (70-110)
[2023-11-12] MEDS ORDERED: CALCIUM CARBONATE 500 MG CHEWABLE PO SCH (17:30)
[2023-11-12] MEDS: diphenhydrAMINE 50 MG/ML 1 ML VIAL IVP ONE (17:30)
[2023-11-12] MEDS: FAMOTIDINE 20 MG/2 ML VIAL IV ONE (17:30)
[2023-11-12] MEDS ORDERED: BIOTIN PO SCH (17:30)
[2023-11-12] MEDS ORDERED: KERATIN PO SCH (17:30)
--- NOTE | 2023-11-12 17:39 | P.HPIM ---
History of Present Illness H&P Date: 11/12/23 Chief Complaint: Left flank pain This is a very pleasant 63-year-old patient who follows with Arleth Ellison with Dr. Cox. Chronic stable medical conditions include asthma, diabetes, GERD, hyperlipidemia, hypertension, neuropathy in hand and feet, DJD, mitral valve prolapse,. Patient's had multiple UTIs in the past. Often times she will not get symptoms until is rather advanced. Does not get the classical frequency urgency dysuria etc. Oftentimes will get a left flank pain. For 2-1/2 months patient's had left flank pain. On and off. Was given a course of antibiotic. Symptoms did not improve then came to the ER on November 07. Urine was sent off. She was called that she has got E. coli resistant to most oral antibiotics. Admitted for the same. Patient's appetite is fair. Has had low-grade fever. Does feel rather tired and exhausted. Admitted and started on Zosyn Review of systems: GEN.: Tired, low-grade fever EYES: None HEENT: [Linear lesion on the corner of the mouth NECK: None RESPIRATORY: None CARDIOVASCULAR: None GASTROINTESTINAL: Left flank tenderness GENITOURINARY: None MUSCULOSKELETAL: None LYMPHATICS: None HEMATOLOGICAL: None PSYCHIATRY: None NEUROLOGICAL: None Social history: Lives with nephew. No smoking. Alcohol occasionally. Physical examination: VITAL SIGNS: 97.3, 76, 18, 99 x 59, 95% room air GENERAL: [BMI 31.9, sitting up awake not in distress. EYES: Pupils equal. Conjunctiva giuliano l. HEENT: External appearance of nose and ears normal, oral cavity grossly normal. NECK: JVD not raised; masses not palpable. HEART: First and second heart sounds are normal; no edema. LUNGS: Respiratory rate normal; clear to auscultation. ABDOMEN: Soft, nontender, liver spleen not palpable, no masses palpable. Left renal angle tenderness PSYCH: Alert and oriented x3; mood and affect giuliano l. MUSCULOSKELETAL:No Clubbing/cyanosis;muscles-grossly intact NEUROLOGICAL: Cranial nerves grossly intact; no facial asymmetry, power and sensation grossly intact. LYMPHATICS: No lymph nodes palpable in the axilla and neck INVESTIGATIONS, reviewed in the clinical context: November 10: White count 8 hemoglobin 13.1 platelets 377 sodium 135 potassium 5.2 BUN 28 creatinine 1.04 lactic acid 2.1 UA positive for ketones, nitrite, leukoesterase, WBC Previous labs: Urine culture from [November 07] E. coli CT scan abdomen pelvis without contrast [November 07: Colonic diverticulosis. Otherwise unremarkable Assessment plan: -Acute on chronic recurrent UTI with cystitis. Consider pyelonephritis, given low-grade fever Patient's failed outpatient treatment. Cultures are growing E. coli from November 07. Sensitive only to IV antibiotics. IV Zosyn. Will do a CT scan with or without contrast as patient is having left renal angle tenderness. Outpatient CT scan without contrast was unremarkable on November 07. ID consulted -Diabetes mellitus type 2 on oral hypoglycemic Metformin -Hyperlipidemia Crestor 20 mg nightly. Lofibra. Zetia. -GERD Prilosec 40 mg a day -Essential hypertension Hyzaar 50/12.5 -Peripheral neuropathy hand and feet Cymbalta 60 mg nightly. Gabapentin 3 mg 3 times daily -Chronic urine incontinence Oxybutynin -Perleche-at the corner of the left mouth. Typically happens from vitamin deficiency in this case from taking Reglan antibiotics likely. Patient be put on multivitamins. Told the patient to keep the area dry. This is not a cold sore. -Full code Care was discussed with patient. Questions answered. Past Medical History Past Medical History: Asthma, Cancer, Diabetes Mellitus, GERD/Reflux, Hyperlipidemia, Hypertension, Mitral Valve Prolapse (MVP), Neurologic Disorder, Osteoarthritis (OA) Additional Past Medical History / Comment(s): neuropathy in hands and feet, degenerative disc disease, skin ca shoulder 2013, mitral valve prolapse, type II diabetes, and seasonal allergies. 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 History of Any Multi-Drug Resistant Organisms: ESBL Date of last positivie culture/infection: 11/30/18 ESBL-E.coli MDRO Source:: Urine Past Surgical History: Adenoidectomy, Orthopedic Surgery, Tonsillectomy Additional Past Surgical History / Comment(s): left knee arthritis & tears repaired. Colonoscopy 2013(next after 10yr)., 2017 HAD TITANIUM NAIL/DUSTIN IN LT FEMUR Past Anesthesia/Blood Transfusion Reactions: Postoperative Nausea & Vomiting (PONV) Past Psychological History: No Psychological Hx Reported Smoking Status: Never smoker Past Alcohol Use History: Rare Past Drug Use History: None Reported - Past Family History Mother Family Medical History: Cancer, Congestive Heart Failure (CHF), Coronary Artery Disease (CAD), Diabetes Mellitus, Hyperlipidemia, Hypertension Additional Family Medical History / Comment(s): Breast cancer. Father Family Medical History: Coronary Artery Disease (CAD), Diabetes Mellitus, Hyperlipidemia, Hypertension Additional Family Medical History / Comment(s): passed during an angioplasty Daughter(s) Family Medical History: No Reported History Sister(s) Family Medical History: Cancer Medications and Allergies Home Medications Medication Instructions Recorded Confirmed Type Cyclobenzaprine [Flexeril] 10 mg PO TID 03/25/15 11/11/23 History Loratadine [Claritin] 10 mg PO DAILY 03/25/15 11/11/23 History Montelukast [Singulair] 10 mg PO DAILY@1730 03/25/15 11/11/23 History Ezetimibe [Zetia] 10 mg PO HS 05/08/16 11/11/23 History metFORMIN HCL [Glucophage] 500 mg PO HS 06/07/18 11/11/23 History Oxybutynin Chloride [Oxybutynin 10 mg PO HS 09/19/19 11/11/23 History Chloride ER] Cranberry Fruit Extract [Cranberry] 500 mg PO BID 05/10/20 11/11/23 History Omeprazole [PriLOSEC] 40 mg PO DAILY 05/10/20 11/11/23 History Cholecalciferol [Vitamin D3 (25 50 mcg PO DAILY 10/15/20 11/11/23 History Mcg = 1000 Iu)] Rosuvastatin [Crestor] 20 mg PO HS 02/10/22 11/11/23 History Cephalexin [Keflex] 500 mg PO Q6HR #40 cap 11/08/23 11/11/23 Rx Acetaminophen [Tylenol Arthritis] 1,300 mg PO Q6H PRN 11/11/23 11/11/23 History Aspirin EC [Ecotrin Low Dose] 81 mg PO DAILY@172911/11/23 11/11/23 History Benzonatate [Tessalon Perle] 200 mg PO DIRECTED PRN 11/11/23 11/11/23 History Biotin/Keratin 10,000mg 1 tab PO DAILY@1730 11/11/23 11/11/23 History Calcium 1,000mg 3,000 mg PO DAILY@172911/11/23 11/11/23 History DULoxetine HCL [Cymbalta] 60 mg PO HS 11/11/23 11/11/23 History Fenofibrate [Lofibra] 160 mg PO DAILY@1730 11/11/23 11/11/23 History Gabapentin 300 mg PO TID 11/11/23 11/11/23 History Losartan-Hctz 50-12.5 mg [Hyzaar 1 tab PO DAILY 11/11/23 11/11/23 History 50-12.5] metFORMIN HCL [Glucophage] 1,000 mg PO DAILY 11/11/23 11/11/23 History valACYclovir HCL [Valtrex] 1,000 mg PO DIRECTED PRN 11/11/23 11/11/23 History Allergies Allergy/AdvReac Type Severity Reaction Status Date / Time Iodine and Iodide Containing Allergy burning Verified 11/11/23 16:10 Produc Physical Exam Vitals: Vital Signs Temp Pulse Pulse Resp BP BP Pulse Ox 11/12/23 08:53 104/60 11/12/23 07:28 97.3 F L 76 18 99/59 95 11/12/23 02:00 98.4 F 76 99/55 94 L 11/11/23 23:00 18 11/11/23 21:49 97.8 F 89 18 155/94 96 11/11/23 17:10 97.7 F 92 17 110/71 95 11/11/23 16:08 98.0 F 107 H 20 120/76 98 Intake and Output 11/11/23 11/12/23 11/12/23 22:59 06:59 14:59 Other: Voiding Method Toilet Toilet # Voids 2 Weight 83.007 kg Results CBC & Chem 7: 11/11/23 16:44 11/11/23 16:44 Labs: Abnormal Lab Results - Last 24 Hours (Table) 11/11/23 11/11/23 11/11/23 Range/Units 16:44 16:44 16:44 Sodium 135 L (137-145) mmol/L Potassium 5.2 H (3.5-5.1) mmol/L BUN 28 H (7-17) mg/dL Plasma Lactic Acid Monico 2.1 H* (0.7-2.0) mmol/L Calcium 10.5 H (8.4-10.2) mg/dL AST 43 H (14-36) U/L Urine Ketones 1+ H (Negative) Urine Nitrite Positive H (Negative) Ur Leukocyte Esterase Small H (Negative) Urine WBC 21 H (0-5) /hpf Urine Bacteria Many H (None) /hpf Urine Mucus Few H (None) /hpf Thrombosis Risk Factor Assmnt - Choose All That Apply Any of the Below Risk Factors Present?: No Other Risk Factors: Yes Each Risk Factor Represents 2 Points: Age 61-74 years Thrombosis Risk Factor Assessment Total Risk Factor Score: 2 Thrombosis Risk Factor Assessment Level: Low Risk
[2023-11-12] MEDS: FENOFIBRATE 160 MG TAB PO SCH (18:26)
[2023-11-12] MEDS: ASPIRIN 81 MG PO SCH (18:26)
[2023-11-12] MEDS: MONTELUKAST 10 MG TAB PO SCH (18:26)
--- NOTE | 2023-11-12 19:00 | CT ---
EXAMINATION TYPE: CT abdomen pelvis wo/w con DATE OF EXAM: 11/12/2023 COMPARISON: 11/08/2023 INDICATION: Left flank pain DLP: 2193.1 mGycm, Automated exposure control for dose reduction was used. CONTRAST: 80 mL of Isovue 370. Study performed with Oral Contrast TECHNIQUE: Axial images were obtained from above the diaphragm to the pubic rami in the axial plane a t 5 mm thick sections. Reconstructed images are reviewed on the computer in the coronal plane. Pre a nd postcontrast imaging is performed. FINDINGS: Limited CT sections are obtained the lung bases. The lung bases are clear. CT ABDOMEN: Liver: Normal Spleen: Normal Pancreas: Normal Adrenal glands: The adrenal glands are normal. Gallbladder: Normal Kidneys: No masses are evident. No hydronephrosis is present. No cysts are present. No renal stone s evident. Aorta: Vascular calcification is within the aorta. Inferior vena cava: Normal. CT PELVIS: Loops of bowel within the abdomen and pelvis are normal. There are loops of bowel lacking oral co ntrast to have limited distention limiting their evaluation. Fecal debris is in the distal colon. Appendix: Normal as visualized. Urinary bladder: Normal. Genitourinary structures: Uterus and adnexa appear normal. Osseous structures: No suspicious lytic or sclerotic lesions. Scoliosis present. Degenerative disc ch rob at the thoracolumbar spine IMPRESSION: 1. Scoliosis with degenerative disc changes. 2. No suspicious change to account for left flank pain. 3. No hydronephrosis or renal stones evident. [facility], , 11/12/2023 6:57 PM
[2023-11-12 20:52] LABS: Glucose,Whole Blood 184 mg/dL (70-110)
--- NOTE | 2023-11-12 23:01 | P.CONS ---
History of Present Illness - Reason for Consult Consult date: 11/12/23 Resistant UTI Requesting physician: Ayush Edwards - Chief Complaint Weakness not feeling well and foul-smelling urine x days - History of Present Illness Patient is a 63-year-old female with a past medical history significant for diabetes mellitus hypertension hyperlipidemia mitral valve prolapse osteoarthritis mention has been dealing with a UTI over the last few weeks and the patient has been treated with multiple courses of antibiotics including Macrobid cephalexin and another 1 with the patient not sure about the name patient mention she was seen in the ER on 11/08/2023 for symptoms of left flank pain and also complaining of generalized bodyaches foul-smelling urine with some lower abdominal discomfort with the patient was diagnosed with UTI patient was discharged on oral Keflex urine culture obtained on that visit to the ER came back with the multiresistant E. coli for the patient is advised to come back to the hospital patient also have abdominal pelvis CT done on 11/08/2023 did not show acute normality and no evidence of obstructive uropathy patient mention she did have an improvement in her symptoms with oral Keflex patient denies high-grade fever but do mention a low-grade fever of 99.9 F and did have some chills still complaining of not feeling well some headache no URI symptom chest pain shortness of breath or cough urinary symptoms mention above now with lower abdominal discomfort she is also complaining of rash in the groin area patient was started on Zosyn infectious disease was consulted for further management of antibiotic therapy Review of Systems Positive point and negatives has been mentioned in the HPI, complete review of systems was performed and all other systems are negative Past Medical History Past Medical History: Asthma, Cancer, Diabetes Mellitus, GERD/Reflux, Hyperlipidemia, Hypertension, Mitral Valve Prolapse (MVP), Neurologic Disorder, Osteoarthritis (OA) Additional Past Medical History / Comment(s): neuropathy in hands and feet, degenerative disc disease, skin ca shoulder 2013, mitral valve prolapse, type II diabetes, and seasonal allergies. 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 History of Any Multi-Drug Resistant Organisms: ESBL Year Discovered:: 11/30/18 ESBL-E.coli MDRO Source:: Urine Past Surgical History: Adenoidectomy, Orthopedic Surgery, Tonsillectomy Additional Past Surgical History / Comment(s): left knee arthritis & tears repaired. Colonoscopy 2014(next after 10yr)., 2017 HAD TITANIUM NAIL/DUSTIN IN LT FEMUR Past Anesthesia/Blood Transfusion Reactions: Postoperative Nausea & Vomiting (PONV) Past Psychological History: No Psychological Hx Reported Smoking Status: Never smoker Past Alcohol Use History: Rare Past Drug Use History: None Reported - Past Family History Mother Family Medical History: Cancer, Congestive Heart Failure (CHF), Coronary Artery Disease (CAD), Diabetes Mellitus, Hyperlipidemia, Hypertension Additional Family Medical History / Comment(s): Breast cancer. Father Family Medical History: Coronary Artery Disease (CAD), Diabetes Mellitus, Hyperlipidemia, Hypertension Additional Family Medical History / Comment(s): passed during an angioplasty Daughter(s) Family Medical History: No Reported History Sister(s) Family Medical History: Cancer Medications and Allergies Home Medications Medication Instructions Recorded Confirmed Type Cyclobenzaprine [Flexeril] 10 mg PO TID 03/25/15 11/11/23 History Loratadine [Claritin] 10 mg PO DAILY 03/25/15 11/11/23 History Montelukast [Singulair] 10 mg PO DAILY@1730 03/25/15 11/11/23 History Ezetimibe [Zetia] 10 mg PO HS 05/08/16 11/11/23 History metFORMIN HCL [Glucophage] 500 mg PO HS 06/07/18 11/11/23 History Oxybutynin Chloride [Oxybutynin 10 mg PO HS 09/19/19 11/11/23 History Chloride ER] Cranberry Fruit Extract [Cranberry] 500 mg PO BID 05/10/20 11/11/23 History Omeprazole [PriLOSEC] 40 mg PO DAILY 05/10/20 11/11/23 History Cholecalciferol [Vitamin D3 (25 50 mcg PO DAILY 10/15/20 11/11/23 History Mcg = 1000 Iu)] Rosuvastatin [Crestor] 20 mg PO HS 02/10/22 11/11/23 History Cephalexin [Keflex] 500 mg PO Q6HR #40 cap 11/08/23 11/11/23 Rx Acetaminophen [Tylenol Arthritis] 1,300 mg PO Q6H PRN 11/11/23 11/11/23 History Aspirin EC [Ecotrin Low Dose] 81 mg PO DAILY@1730 11/11/23 11/11/23 History Benzonatate [Tessalon Perle] 200 mg PO DIRECTED PRN 11/11/23 11/11/23 History Biotin/Keratin 10,000mg 1 tab PO DAILY@1730 11/11/23 11/11/23 History Calcium 1,000mg 3,000 mg PO DAILY@1730 11/11/23 11/11/23 History DULoxetine HCL [Cymbalta] 60 mg PO HS 11/11/23 11/11/23 History Fenofibrate [Lofibra] 160 mg PO DAILY@1730 11/11/23 11/11/23 History Gabapentin 300 mg PO TID 11/11/23 11/11/23 History Losartan-Hctz 50-12.5 mg [Hyzaar 1 tab PO DAILY 11/11/23 11/11/23 History 50-12.5] metFORMIN HCL [Glucophage] 1,000 mg PO DAILY 11/11/23 11/11/23 History valACYclovir HCL [Valtrex] 1,000 mg PO DIRECTED PRN 11/11/23 11/11/23 History Allergies Allergy/AdvReac Type Severity Reaction Status Date / Time Iodine and Iodide Containing Allergy burning Verified 11/11/23 16:10 Produc Physical Exam Vitals: Vital Signs Temp Pulse Pulse Resp BP BP Pulse Ox 11/12/23 08:53 104/60 11/12/23 07:28 97.3 F L 76 18 99/59 95 11/12/23 02:00 98.4 F 76 99/55 94 L 11/11/23 23:00 18 11/11/23 21:49 97.8 F 89 18 155/94 96 11/11/23 17:10 97.7 F 92 17 110/71 95 11/11/23 16:08 98.0 F 107 H 20 120/76 98 Intake and Output 11/11/23 11/12/23 11/12/23 22:59 06:59 14:59 Other: Voiding Method Toilet Toilet # Voids 2 Weight 83.007 kg GENERAL DESCRIPTION: Middle-aged fmale lying in bed, no distress. No tachypnea or accessory muscle of respiration use. HEENT: Shows Pallor , no scleral icterus. Oral mucous membrane is dry. No pharyngeal erythema or thrush NECK: Trachea central, no thyromegaly. LUNGS: Unlabored breathing. Clear to auscultation anteriorly. No wheeze or crackle. HEART: S1, S2, regular rate and rhythm. No loud murmur ABDOMEN: Soft, no tenderness , guarding or rigidity, no organomegaly EXTREMITIES: No edema of feet. SKIN: No rash, no masses palpable. NEUROLOGICAL: The patient is awake, alert, oriented x3, mood and affect normal. Results CBC & Chem 7: 11/11/23 16:44 11/11/23 16:44 Labs: Abnormal Lab Results - Last 24 Hours (Table) 11/11/23 11/11/23 11/11/23 Range/Units 16:44 16:44 16:44 Sodium 135 L (137-145) mmol/L Potassium 5.2 H (3.5-5.1) mmol/L BUN 28 H (7-17) mg/dL Plasma Lactic Acid Monico 2.1 H* (0.7-2.0) mmol/L Calcium 10.5 H (8.4-10.2) mg/dL AST 43 H (14-36) U/L Urine Ketones 1+ H (Negative) Urine Nitrite Positive H (Negative) Ur Leukocyte Esterase Small H (Negative) Urine WBC 21 H (0-5) /hpf Urine Bacteria Many H (None) /hpf Urine Mucus Few H (None) /hpf Assessment and Plan (1) Candidiasis, cutaneous Current Visit: Yes Status: Acute Code(s): B37.2 - CANDIDIASIS OF SKIN AND NAIL SNOMED Code(s): 05051103 (2) Failure of outpatient treatment Current Visit: Yes Status: Acute Code(s): Z78.9 - OTHER SPECIFIED HEALTH S TATUS SNOMED Code(s): 513726223 (3) UTI (urinary tract infection) Current Visit: Yes Status: Acute Code(s): N39.0 - URINARY TRACT INFECTION, SITE NOT SPECIFIED SNOMED Code(s): 21715389 Plan: 1patient presenting to the hospital with left flank pain urinary symptoms of lower abdominal discomfort and foul-smelling urine did have significantly positive UA with the recent urine culture positive for a drug-resistant E. coli failing outpatient oral Keflex therapy patient did have a CT abdominal pelvis on 11/08/2023 did not show any evidence of obstructive uropathy 2-patient also complaining of rash in bilateral groin area suggestive of cutaneous candidiasis 3-patient to continue with Zosyn while waiting for repeat urine culture to be finalized and will likely need IV diuretic on discharge 4-we will add nystatin powder bilateral groin area We will follow on clinical condition and cultures to further adjust medication if needed Thank you for this consultation we will follow the patient along with you Dictation was produced using [employer] dictation software. please excuse any grammatical, word or spelling errors. Time with Patient: Greater than 30
[2023-11-13 05:58] LABS: Glucose,Whole Blood 142 mg/dL (70-110)
[2023-11-13 11:53] LABS: Glucose,Whole Blood 71 mg/dL (70-110)
--- NOTE | 2023-11-13 13:21 | P.PN ---
Subjective Progress Note Date: 11/13/23 Principal diagnosis: Reason for follow-up is a drug-resistant UTI Patient is a 63-year-old female with a past medical history significant for diabetes mellitus hypertension hyperlipidemia mitral valve prolapse osteoarthritis and recurrent UTI admitted to hospital with a drug- resistant UTI. On today's evaluation that is 11/13/2023, Patient is afebrile this morning pat ient denies having any chest pain shortness of breath or cough, the patient is breathing comfortably on room air, patient denies any abdominal pain no diarrhea no nausea no vomiting mention urine is not as steamy and foul-smelling as it was. Urine is growing gram-negative blood cultures are pending patient did have repeat CT abdominal pelvis last night no hydronephrosis or renal stones Objective - Vital Signs Vital signs: Vital Signs Temp 97.8 F 11/13/23 07:24 Pulse 72 11/13/23 08:44 Resp 16 11/13/23 08:44 BP 96/60 11/13/23 07:24 Pulse Ox 97 11/13/23 07:24 FiO2 Intake & Output 11/12/23 11/13/23 11/13/23 18:59 06:59 18:59 Other: Voiding Method Toilet Toilet Toilet # Voids 2 5 - Exam GENERAL DESCRIPTION: Middle-age female lying in bed in no distress RESPIRATORY SYSTEM: Unlabored breathing , decreased breath sounds at bases HEART: S1 S2 regular rate and rhythm , ABDOMEN: Soft , no tenderness EXTREMITIES: No edema feet - Labs CBC & Chem 7: 11/11/23 16:44 11/11/23 16:44 Labs: Abnormal Lab Results - Last 24 Hours (Table) 11/12/23 11/12/23 11/13/23 Range/Units 16:37 20:41 05:56 POC Glucose (mg/dL) 138 H 184 H 142 H (70-110) mg/dL Microbiology - Last 24 Hours (Table) 11/11/23 16:44 Blood Culture - Preliminary Blood 11/11/23 16:44 Urine Culture - Preliminary Urine,Voided Gram Neg Bacilli Assessment and Plan (1) Candidiasis, cutaneous Current Visit: Yes Status: Acute Code(s): B37.2 - CANDIDIASIS OF SKIN AND NAIL SNOMED Code(s): 64456753 (2) Failure of outpatient treatment Current Visit: Yes Status: Acute Code(s): Z78.9 - OTHER SPECIFIED HEALTH STATUS SNOMED Code(s): 711369345 (3) UTI (urinary tract infection) Current Visit: Yes Status: Acute Code(s): N39.0 - URINARY TRACT INFECTION, SITE NOT SPECIFIED SNOMED Code(s): 57382518 Plan: 1patient presenting to the hospital with left flank pain urinary symptoms of lower abdominal discomfort and foul-smelling urine did have significantly positive UA with the recent urine culture positive for a drug-resistant E. coli failing outpatient oral Keflex therapy patient did have a CT abdominal pelvis on 11/08/2023 did not show any evidence of obstructive uropathy 2-patient also complaining of rash in bilateral groin area suggestive of cutaneous candidiasis we will continue with the nystatin powder 3-patient urine is growing gram-negative with ID sensitivities pending CT was negative for any hydronephrosis or stone we will continue the patient on Zosyn while waiting for repeat urine culture to finalize Dictation was produced using [employer] dictation software. please excuse any grammatical, word or spelling errors. Time with Patient: Less than 30
[2023-11-13 16:52] LABS: Glucose,Whole Blood 96 mg/dL (70-110)
--- NOTE | 2023-11-13 16:57 | P.PN ---
Progress Note - Text Progress Note Date: 11/13/23 Chief Complaint: Left flank pain This is a very pleasant 63-year-old patient who follows with Arleth Ellison with Dr. Cox. Chronic stable medical conditions include asthma, diabetes, GERD, hyperlipidemia, hypertension, neuropathy in hand and feet, DJD, mitral valve prolapse,. Patient's had multiple UTIs in the past. Often times she will not get symptoms until is rather advanced. Does not get the classical frequency urgency dysuria etc. Oftentimes will get a left flank pain. For 2-1/2 months patient's had left flank pain. On and off. Was given a course of antibiotic. Symptoms did not improve then came to the ER on November 07. Urine was sent off. She was called that she has got E. coli resistant to most oral antibiotics. Admitted for the same. Patient's appetite is fair. Has had low-grade fever. Does feel rather tired and exhausted. Admitted and started on Zosyn November 12: Patient left flank pain much improved. CT scan with contrast unremarkable. Eating fair. IV fluids. Discussed with patient. Follow with ID. Active Medications Acetaminophen (Acetaminophen Tab 325 Mg Tab) 1,300 mg PO Q6H PRN PRN Reason: Pain or Fever > 100.5 Acetaminophen (Acetaminophen Tab 325 Mg Tab) 650 mg PO Q6HR PRN PRN Reason: Mild Pain or Fever > 100.5 Last Admin: 11/12/23 18:26 Dose: 650 mg Hydrocodone Bitart/Acetaminophen (Hydrocodone/Apap 5-325mg 1 Each Tab) 1 each PO Q4HR PRN PRN Reason: Moderate Pain (Scale 4 to 6) Aspirin (Aspirin 81 Mg) 81 mg PO DAILY@1730 [facility] Last Admin: 11/13/23 16:50 Dose: 81 mg Atorvastatin Calcium (Atorvastatin 40 Mg Tab) 40 mg PO HS [facility] Last Admin: 11/12/23 21:10 Dose: 40 mg Benzonatate (Benzonatate 100 Mg Cap) 200 mg PO DIRECTED PRN PRN Reason: Cough Cholecalciferol (Cholecalciferol 25 Mcg (1000 Iu) Tablet) 50 mcg PO DAILY [facility] Last Admin: 11/13/23 08:43 Dose: 50 mcg Cyclobenzaprine HCl (Cyclobenzaprine 10 Mg Tab) 10 mg PO TID [facility] Last Admin: 11/13/23 16:50 Dose: 10 mg Duloxetine HCl (Duloxetine Hcl 60 Mg Capsule.Dr) 60 mg PO HS [facility] Last Admin: 11/12/23 21:10 Dose: 60 mg Ezetimibe (Ezetimibe 10 Mg Tab) 10 mg PO HS [facility] Last Admin: 11/12/23 21:10 Dose: 10 mg Enoxaparin Sodium (Enoxaparin 40 Mg/0.4 Ml Syringe) 40 mg SQ DAILY [facility] Last Admin: 11/13/23 08:43 Dose: 40 mg Fenofibrate (Fenofibrate 160 Mg Tab) 160 mg PO DAILY@1730 [facility] Last Admin: 11/13/23 16:50 Dose: 160 mg Gabapentin (Gabapentin 300 Mg Cap) 300 mg PO TID [facility] Last Admin: 11/13/23 16:50 Dose: 300 mg HCTZ/Losartan Potassium (Losartan-Hctz 50-12.5 Mg 1 Each Tab) 1 each PO DAILY [facility] Last Admin: 11/13/23 08:35 Dose: Not Given Piperacillin Sod/Tazobactam (Sod 3.375 gm/ Sodium Chloride) 100 mls @ 25 mls/hr IVPB Q8HR [facility]; Protocol Last Admin: 11/13/23 16:50 Dose: 25 mls/hr Sodium Chloride (Saline 0.9%) 1,000 mls @ 75 mls/hr IV .[id number] [facility] Last Admin: 11/13/23 04:34 Dose: 75 mls/hr Loratadine (Loratadine 10 Mg Tab) 10 mg PO DAILY [facility] Last Admin: 11/13/23 08:43 Dose: 10 mg Metformin HCl (Metformin 500 Mg Tab) 500 mg PO HS [facility] Last Admin: 11/12/23 21:10 Dose: 500 mg Metformin HCl (Metformin 500 Mg Tab) 1,000 mg PO DAILY [facility] Last Admin: 11/13/23 08:43 Dose: 1,000 mg Montelukast Sodium (Montelukast 10 Mg Tab) 10 mg PO DAILY@1730 [facility] Last Admin: 11/13/23 16:50 Dose: 10 mg Morphine Sulfate (Morphine Sulfate 4 Mg/Ml Syringe) 4 mg IV Q4HR PRN PRN Reason: Severe Pain (Scale 7 to 10) Last Admin: 11/13/23 02:26 Dose: 4 mg Multivitamins (Multivitamins, Thera 1 Each Tab) 1 each PO DAILY [facility] Last Admin: 11/13/23 08:44 Dose: 1 each Naloxone HCl (Naloxone 0.4 Mg/Ml 1 Ml Vial) 0.2 mg IV Q2M PRN PRN Reason: Opioid Reversal Nystatin (Nystatin 100,000 Unit/Gm Powd 15 Gm) 1 applic TOPICAL BID [facility]; Protocol Last Admin: 11/13/23 08:44 Dose: 1 applic Ondansetron HCl (Ondansetron 4 Mg/2 Ml Vial) 4 mg IVP Q8HR PRN PRN Reason: Nausea And Vomiting Oxybutynin Chloride (Oxybutynin 10 Mg Tab.Er.24) 10 mg PO HS [facility] Last Admin: 11/12/23 21:10 Dose: 10 mg Pantoprazole Sodium (Pantoprazole 40 Mg Tablet) 40 mg PO DAILY [facility] Last Admin: 11/13/23 08:43 Dose: 40 mg Social history: Lives with nephew. No smoking. Alcohol occasionally. Physical examination: VITAL SIGNS: 97.9, 81, 16, 114 x 67, 97% room air GENERAL: Up in bed, comfortable s. EYES: Pupils equal. Conjunctiva giuliano l. HEENT: External appearance of nose and ears normal, oral cavity grossly normal. NECK: JVD not raised; masses not palpable. HEART: First and second heart sounds are normal; no edema. LUNGS: Respiratory rate normal; clear to auscultation. ABDOMEN: Soft, nontender, liver spleen not palpable, no masses palpable. Left renal angle tenderness-greatly resolved PSYCH: Alert and oriented x3; mood and affect giuliano l. MUSCULOSKELETAL:No Clubbing/cyanosis;muscles-grossly intact INVESTIGATIONS, reviewed in the clinical context: CT scan abdomen pelvis [November 11] unremarkable November 10: White count 8 hemoglobin 13.1 platelets 377 sodium 135 potassium 5.2 BUN 28 creatinine 1.04 lactic acid 2.1 UA positive for ketones, nitrite, leukoesterase, WBC Previous labs: Urine culture from [November 07] E. coli CT scan abdomen pelvis without contrast [November 07: Colonic diverticulosis. Otherwise unremarkable Assessment plan: -Acute on chronic recurrent UTI with cystitis. Consider pyelonephritis, given low-grade fever Patient's failed outpatient treatment. Cultures are growing E. coli from Se ptember . Sensitive only to IV antibiotics. IV Zosyn. CT scan abdomen pelvis with contrast: Unremarkable. Outpatient CT scan without contrast was unremarkable on November 07. ID following -Diabetes mellitus type 2 on oral hypoglycemic Metformin. Follow Accu-Cheks -Hyperlipidemia Crestor 20 mg nightly. Lofibra. Zetia. -GERD Prilosec 40 mg a day -Essential hypertension Hyzaar 50/12.5 -Peripheral neuropathy hand and feet Cymbalta 60 mg nightly. Gabapentin 3 mg 3 times daily -Chronic urine incontinence Oxybutynin -Perleche-at the corner of the left mouth. Typically happens from vitamin deficiency in this case from taking Reglan antibiotics likely. Patient be put on multivitamins. Told the patient to keep the area dry. This is not a cold sore. -Full code Discussed with patient. Might just do 5 days of inpatient IV antibiotics. And then discontinue. Will discuss with ID Past Medical History Past Medical History: Asthma, Cancer, Diabetes Mellitus, GERD/Reflux, Hyperlipidemia, Hypertension, Mitral Valve Prolapse (MVP), Neurologic Disorder, Osteoarthritis (OA) Additional Past Medical History / Comment(s): neuropathy in hands and feet, degenerative disc disease, skin ca shoulder 2013, mitral valve prolapse, type II diabetes, and seasonal allergies. 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 History of Any Multi-Drug Resistant Organisms: ESBL Date of last positivie culture/infection: 11/30/18 ESBL-E.coli MDRO Source:: Urine Past Surgical History: Adenoidectomy, Orthopedic Surgery, Tonsillectomy Additional Past Surgical History / Comment(s): left knee arthritis & tears repaired. Colonoscopy 2013(next after 10yr)., 2017 HAD TITANIUM NAIL/DUSTIN IN LT FEMUR Past Anesthesia/Blood Transfusion Reactions: Postoperative Nausea & Vomiting (PONV) Past Psychological History: No Psychological Hx Reported Smoking Status: Never smoker Past Alcohol Use History: Rare Past Drug Use History: None Reported
[2023-11-13 21:06] LABS: Glucose,Whole Blood 93 mg/dL (70-110)
[2023-11-14 04:01] LABS: Basophils % (A) 0 %; Eosinophils # (A) 0.1 k/uL (0-0.7); Eosinophils % (A) 1 %; HCT 35.7 % (34.0-46.0); HGB 11.8 gm/dL (11.4-16.0); Lymphocytes # (A) 3.5 k/uL (1.0-4.8); Lymphocytes % (A) 36 %; MCH 31.6 pg (25.0-35.0); MCV 95.7 fL (80.0-100.0); Mean Platelet Volume 8.4; Monocytes # (A) 0.5 k/uL (0-1.0); Monocytes % (A) 5 %; Neutrophils # (A) 5.3 k/uL (1.3-7.7); Neutrophils % (A) 55 %; Platelet Count 312 k/uL (150-450); RBC 3.73 m/uL (3.80-5.40); RDW 14.4 % (11.5-15.5); WBC 9.6 k/uL (3.8-10.6)
[2023-11-14 04:10] LABS: African American GFR (CKD) 61 (>60 ml/min/1.73 sqM); Anion Gap 6 mmol/L; Blood Urea Nitrogen 23 mg/dL (7-17); Calcium 9.5 mg/dL (8.4-10.2); Carbon Dioxide 24 mmol/L (22-30); Chloride 107 mmol/L (98-107); Glucose 86 mg/dL (74-99); Non-African American GFR(CKD) 53 (>60 ml/min/1.73 sqM); Potassium 4.3 mmol/L (3.5-5.1); Sodium 137 mmol/L (137-145)
[2023-11-14 05:43] LABS: Glucose,Whole Blood 150 mg/dL (70-110)
[2023-11-14] MEDS: ACETAMINOPHEN TAB 325 MG TAB PO PRN (09:50)
[2023-11-14 11:27] LABS: Glucose,Whole Blood 84 mg/dL (70-110)
[2023-11-14] MEDS: ERTAPENEM 1 GM in SODIUM CHLORIDE 0.9% 50 ML IVPB SCH (11:33)
[2023-11-14 16:34] LABS: Glucose,Whole Blood 104 mg/dL (70-110)
--- NOTE | 2023-11-14 20:33 | P.PN ---
Progress Note - Text Progress Note Date: 11/14/23 Chief Complaint: Left flank pain This is a very pleasant 63-year-old patient who follows with Arleth Ellison with Dr. Cox. Chronic stable medical conditions include asthma, diabetes, GERD, hyperlipidemia, hypertension, neuropathy in hand and feet, DJD, mitral valve prolapse,. Patient's had multiple UTIs in the past. Often times she will not get symptoms until is rather advanced. Does not get the classical frequency urgency dysuria etc. Oftentimes will get a left flank pain. For 2-1/2 months patient's had left flank pain. On and off. Was given a course of antibiotic. Symptoms did not improve then came to the ER on November 07. Urine was sent off. She was called that she has got E. coli resistant to most oral antibiotics. Admitted for the same. Patient's appetite is fair. Has had low-grade fever. Does feel rather tired and exhausted. Admitted and started on Zosyn November 12: Patient left flank pain much improved. CT scan with contrast unremarkable. Eating fair. IV fluids. Discussed with patient. Follow with ID. November 13: Comfortable. No urinary symptoms. Discussed with ID. Given patient's had no fever no white count no urinary symptoms. We have decided to give her 1 more dose of IV or ertapenem tomorrow. And discharged after the same. Discussed with the patient. No urinary symptoms. No white count. No fever no chills. Good appetite. Active Medications Acetaminophen (Acetaminophen Tab 325 Mg Tab) 1,300 mg PO Q6H PRN PRN Reason: Pain or Fever > 100.5 Last Admin: 11/14/23 09:50 Dose: 1,300 mg Acetaminophen (Acetaminophen Tab 325 Mg Tab) 650 mg PO Q6HR PRN PRN Reason: Mild Pain or Fever > 100.5 Last Admin: 11/14/23 17:30 Dose: 650 mg Hydrocodone Bitart/Acetaminophen (Hydrocodone/Apap 5-325mg 1 Each Tab) 1 each PO Q4HR PRN PRN Reason: Moderate Pain (Scale 4 to 6) Aspirin (Aspirin 81 Mg) 81 mg PO DAILY@1730 [facility] Last Admin: 11/14/23 17:25 Dose: 81 mg Atorvastatin Calcium (Atorvastatin 40 Mg Tab) 40 mg PO HS [facility] Last Admin: 11/13/23 21:00 Dose: 40 mg Benzonatate (Benzonatate 100 Mg Cap) 200 mg PO DIRECTED PRN PRN Reason: Cough Cholecalciferol (Cholecalciferol 25 Mcg (1000 Iu) Tablet) 50 mcg PO DAILY [facility] Last Admin: 11/14/23 09:32 Dose: 50 mcg Cyclobenzaprine HCl (Cyclobenzaprine 10 Mg Tab) 10 mg PO TID [facility] Last Admin: 11/14/23 17:25 Dose: 10 mg Duloxetine HCl (Duloxetine Hcl 60 Mg Capsule.Dr) 60 mg PO [facility] Last Admin: 11/13/23 21:00 Dose: 60 mg Ezetimibe (Ezetimibe 10 Mg Tab) 10 mg PO [facility] Last Admin: 11/13/23 20:59 Dose: 10 mg Enoxaparin Sodium (Enoxaparin 40 Mg/0.4 Ml Syringe) 40 mg SQ DAILY [facility] Last Admin: 11/14/23 09:31 Dose: 40 mg Fenofibrate (Fenofibrate 160 Mg Tab) 160 mg PO DAILY@1730 [facility] Last Admin: 11/14/23 17:25 Dose: 160 mg Gabapentin (Gabapentin 300 Mg Cap) 300 mg PO TID [facility] Last Admin: 11/14/23 17:25 Dose: 300 mg HCTZ/Losartan Potassium (Losartan-Hctz 50-12.5 Mg 1 Each Tab) 1 each PO DAILY [facility] Last Admin: 11/14/23 09:31 Dose: 1 each Sodium Chloride (Saline 0.9%) 1,000 mls @ 75 mls/hr IV .[id number] [facility] Last Admin: 11/14/23 05:29 Dose: 75 mls/hr Ertapenem 1 gm/ Sodium (Chloride) 50 mls @ 100 mls/hr IVPB DAILY@1200 [facility]; Protocol Last Admin: 11/14/23 11:33 Dose: 100 mls/hr Loratadine (Loratadine 10 Mg Tab) 10 mg PO DAILY [facility] Last Admin: 11/14/23 09:32 Dose: 10 mg Metformin HCl (Metformin 500 Mg Tab) 500 mg PO [facility] Last Admin: 11/13/23 21:00 Dose: 500 mg Metformin HCl (Metformin 500 Mg Tab) 1,000 mg PO DAILY [facility] Last Admin: 11/14/23 09:32 Dose: 1,000 mg Montelukast Sodium (Montelukast 10 Mg Tab) 10 mg PO DAILY@1730 [facility] Last Admin: 11/14/23 17:25 Dose: 10 mg Morphine Sulfate (Morphine Sulfate 4 Mg/Ml Syringe) 4 mg IV Q4HR PRN PRN Reason: Severe Pain (Scale 7 to 10) Last Admin: 11/13/23 02:26 Dose: 4 mg Multivitamins (Multivitamins, Thera 1 Each Tab) 1 each PO DAILY [facility] Last Admin: 11/14/23 09:31 Dose: 1 each Naloxone HCl (Naloxone 0.4 Mg/Ml 1 Ml Vial) 0.2 mg IV Q2M PRN PRN Reason: Opioid Reversal Nystatin (Nystatin 100,000 Unit/Gm Powd 15 Gm) 1 applic TOPICAL BID [facility]; Protocol Last Admin: 11/14/23 09:33 Dose: 1 applic Ondansetron HCl (Ondansetron 4 Mg/2 Ml Vial) 4 mg IVP Q8HR PRN PRN Reason: Nausea And Vomiting Oxybutynin Chloride (Oxybutynin 10 Mg Tab.Er.24) 10 mg PO HS [facility] Last Admin: 11/13/23 21:00 Dose: 10 mg Pantoprazole Sodium (Pantoprazole 40 Mg Tablet) 40 mg PO DAILY [facility] Last Admin: 11/14/23 09:32 Dose: 40 mg Social history: Lives with nephew. No smoking. Alcohol occasionally. Physical examination: VITAL SIGNS: 98.3, 77, 17, 112 x 70, 95% room air GENERAL: Sitting in bed, comfortable EYES: Pupils equal. Conjunctiva giuliano l. HEENT: External appearance of nose and ears normal, oral cavity grossly normal. NECK: JVD not raised; masses not palpable. HEART: First and second heart sounds are normal; no edema. LUNGS: Respiratory rate normal; clear to auscultation. ABDOMEN: Soft, nontender, liver spleen not palpable, no masses palpable. Left renal angle tenderness-greatly resolved PSYCH: Alert and oriented x3; mood and affect giuliano l. MUSCULOSKELETAL:No Clubbing/cyanosis;muscles-grossly intact INVESTIGATIONS, reviewed in the clinical context: November 13: White count 9.6 hemoglobin 11.8 potassium 4[address] scan abdomen pelvis [November 11] unremarkable November 10: White count 8 hemoglobin 13.1 platelets 377 sodium 135 potassium 5.2 BUN 28 creatinine 1.04 lactic acid 2.1 UA positive for ketones, nitrite, leukoesterase, WBC Previous labs: Urine culture from [November 07] E. coli CT scan abdomen pelvis without contrast [November 07: Colonic diverticulosis. Otherwise unremarkable Assessment plan: -Acute on chronic recurrent UTI with cystitis. Consider pyelonephritis, given low-grade fever Patient's failed outpatient treatment. Cultures are growing E. coli from November 07. Sensitive only to IV antibiotics. IV Zosyn-changed to IV ertapenem November 13. CT scan abdomen pelvis with contrast: Unremarkable. Outpatient CT scan without contrast was unremarkable on November 07. Possible discharge after dose of ertapenem tomorrow as discussed with ID today -Diabetes mellitus type 2 on oral hypoglycemic Metformin. Follow Accu-Cheks -Hyperlipidemia Crestor 20 mg nightly. Lofibra. Zetia. -GERD Prilosec 40 mg a day -Essential hypertension Hyzaar 50/12.5 -Peripheral neuropathy hand and feet Cymbalta 60 mg nightly. Gabapentin 3 mg 3 times daily -Chronic urine incontinence Oxybutynin -Perleche-at the corner of the left mouth. Typically happens from vitamin deficiency in this case from taking Reglan antibiotics likely. Patient be put on multivitamins. Told the patient to keep the area dry. This is not a cold sore. -Full code Discussed with patient ID. Possible discharge home after second dose of IV er tapenem Past Medical History Past Medical History: Asthma, Cancer, Diabetes Mellitus, GERD/Reflux, Hyperlipidemia, Hypertension, Mitral Valve Prolapse (MVP), Neurologic Disorder, Osteoarthritis (OA) Additional Past Medical History / Comment(s): neuropathy in hands and feet, degenerative disc disease, skin ca shoulder 2013, mitral valve prolapse, type II diabetes, and seasonal allergies. 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 History of Any Multi-Drug Resistant Organisms: ESBL Date of last positivie culture/infection: 11/30/18 ESBL-E.coli MDRO Source:: Urine Past Surgical History: Adenoidectomy, Orthopedic Surgery, Tonsillectomy Additional Past Surgical History / Comment(s): left knee arthritis & tears repaired. Colonoscopy 2013(next after 10yr)., 2017 HAD TITANIUM NAIL/DUSTIN IN LT FEMUR Past Anesthesia/Blood Transfusion Reactions: Postoperative Nausea & Vomiting (PONV) Past Psychological History: No Psychological Hx Reported Smoking Status: Never smoker Past Alcohol Use History: Rare Past Drug Use History: None Reported
[2023-11-14 21:07] LABS: Glucose,Whole Blood 90 mg/dL (70-110)
[2023-11-15 05:56] LABS: Glucose,Whole Blood 85 mg/dL (70-110)
--- NOTE | 2023-11-15 08:32 | P.PN ---
Subjective Progress Note Date: 11/14/23 Principal diagnosis: Reason for follow-up is a drug-resistant UTI Patient is a 63-year-old female with a past medical history significant for diabetes mellitus hypertension hyperlipidemia mitral valve prolapse osteoarthritis and recurrent UTI admitted to hospital with a drug- resistant UTI. On today's evaluation that is 11/14/2023,the patient denies any fever or any c hills, patient is breathing comfortably on room air, the patient denies chest pain shortness of breath and no significant cough, patient mention improvement in her left flank pain no nausea no vomiting or diarrhea. Patient white count is 9.6, creatinine 1.1 0 repeat urine electrolytes ESBL E. coli Objective - Vital Signs Vital signs: Vital Signs Temp 98.0 F 11/14/23 07:06 Pulse 88 11/14/23 07:06 Resp 17 11/14/23 07:06 BP 139/83 11/14/23 07:06 Pulse Ox 97 11/14/23 07:06 FiO2 Intake & Output 11/13/23 11/14/23 11/14/23 18:59 06:59 18:59 Other: Voiding Method Toilet Toilet # Voids 3 - Exam GENERAL DESCRIPTION: Middle-age female lying in bed in no distress RESPIRATORY SYSTEM: Unlabored breathing , decreased breath sounds at bases HEART: S1 S2 regular rate and rhythm , ABDOMEN: Soft , no tenderness EXTREMITIES: No edema feet - Labs CBC & Chem 7: 11/14/23 02:59 11/14/23 02:59 Labs: Abnormal Lab Results - Last 24 Hours (Table) 11/14/23 11/14/23 11/14/23 Range/Units 02:59 02:59 05:40 RBC 3.73 L (3.80-5.40) m/uL BUN 23 H (7-17) mg/dL Creatinine 1.10 H (0.52-1.04) mg/dL POC Glucose (mg/dL) 150 H (70-110) mg/dL Microbiology - Last 24 Hours (Table) 11/11/23 16:44 Blood Culture - Preliminary Blood 11/11/23 16:44 Urine Culture - Final Urine,Voided Escherichia coli Assessment and Plan (1) Candidiasis, cutaneous Current Visit: Yes Status: Acute Code(s): B37.2 - CANDIDIASIS OF SKIN AND NAIL SNOMED Code(s): 79918580 (2) Failure of outpatient treatment Current Visit: Yes Status: Acute Code(s): Z78.9 - OTHER SPECIFIED HEALTH STATUS SNOMED Code(s): 887575441 (3) UTI (urinary tract infection) Current Visit: Yes Status: Acute Code(s): N39.0 - URINARY TRACT INFECTION, SITE NOT SPECIFIED SNOMED Code(s): 92113760 Plan: 1patient presenting to the hospital with left flank pain urinary symptoms of lower abdominal discomfort and foul-smelling urine did have significantly positive UA with the recent urine culture positive for a drug-resistant E. coli failing outpatient oral Keflex therapy patient did have a CT abdominal pelvis on 11/08/2023 did not show any evidence of obstructive uropathy 2-patient also complaining of rash in bilateral groin area suggestive of cuta neous candidiasis we will continue with the nystatin powder, patient mention improvement in the rash 3-patient urine has been finalized with ESBL E. coli we will discontinue Zosyn and start the patient on Invanz 1 g daily Dictation was produced using [employer] dictation software. please excuse any gram matical, word or spelling errors. Time with Patient: Less than 30
[2023-11-15 11:43] LABS: Glucose,Whole Blood 92 mg/dL (70-110)
[2023-11-15 16:28] LABS: Glucose,Whole Blood 118 mg/dL (70-110)
--- NOTE | 2023-11-15 16:52 | P.PN ---
Progress Note - Text Progress Note Date: 11/15/23 Chief Complaint: Left flank pain This is a very pleasant 63-year-old patient who follows with Arleth Ellison with Dr. Cox. Chronic stable medical conditions include asthma, diabetes, GERD, hyperlipidemia, hypertension, neuropathy in hand and feet, DJD, mitral valve prolapse,. Patient's had multiple UTIs in the past. Often times she will not get symptoms until is rather advanced. Does not get the classical frequency urgency dysuria etc. Oftentimes will get a left flank pain. For 2-1/2 months patient's had left flank pain. On and off. Was given a course of antibiotic. Symptoms did not improve then came to the ER on November 07. Urine was sent off. She was called that she has got E. coli resistant to most oral antibiotics. Admitted for the same. Patient's appetite is fair. Has had low-grade fever. Does feel rather tired and exhausted. Admitted and started on Zosyn November 12: Patient left flank pain much improved. CT scan with contrast unremarkable. Eating fair. IV fluids. Discussed with patient. Follow with ID. November 13: Comfortable. No urinary symptoms. Discussed with ID. Given patient's had no fever no white count no urinary symptoms. We have decided to give her 1 more dose of IV or ertapenem tomorrow. And discharged after the same. Discussed with the patient. No urinary symptoms. No white count. No fever no chills. Good appetite. November 14: Patient doing well. No urinary symptoms. No fever no white count. Further discussion with the patient and ID Dr. Nogueira. They have decided proceed with home IV antibiotics. That is being worked out. And the financial aspect of outpatient antibiotics. Active Medications Acetaminophen (Acetaminophen Tab 325 Mg Tab) 1,300 mg PO Q6H PRN PRN Reason: Pain or Fever > 100.5 Last Admin: 11/15/23 09:27 Dose: 1,300 mg Acetaminophen (Acetaminophen Tab 325 Mg Tab) 650 mg PO Q6HR PRN PRN Reason: Mild Pain or Fever > 100.5 Last Admin: 11/14/23 17:30 Dose: 650 mg Hydrocodone Bitart/Acetaminophen (Hydrocodone/Apap 5-325mg 1 Each Tab) 1 each PO Q4HR PRN PRN Reason: Moderate Pain (Scale 4 to 6) Aspirin (Aspirin 81 Mg) 81 mg PO DAILY@1730 [facility] Last Admin: 11/14/23 17:25 Dose: 81 mg Atorvastatin Calcium (Atorvastatin 40 Mg Tab) 40 mg PO HS [facility] Last Admin: 11/13/23 21:00 Dose: 40 mg Benzonatate (Benzonatate 100 Mg Cap) 200 mg PO DIRECTED PRN PRN Reason: Cough Cholecalciferol (Cholecalciferol 25 Mcg (1000 Iu) Tablet) 50 mcg PO DAILY [facility] Last Admin: 11/15/23 09:21 Dose: 50 mcg Cyclobenzaprine HCl (Cyclobenzaprine 10 Mg Tab) 10 mg PO TID [facility] Last Admin: 11/15/23 16:22 Dose: 10 mg Duloxetine HCl (Duloxetine Hcl 60 Mg Capsule.Dr) 60 mg PO [facility] Last Admin: 11/14/23 21:53 Dose: 60 mg Ezetimibe (Ezetimibe 10 Mg Tab) 10 mg PO [facility] Last Admin: 11/14/23 21:53 Dose: 10 mg Enoxaparin Sodium (Enoxaparin 40 Mg/0.4 Ml Syringe) 40 mg SQ DAILY [facility] Last Admin: 11/15/23 09:20 Dose: 40 mg Fenofibrate (Fenofibrate 160 Mg Tab) 160 mg PO DAILY@1730 [facility] Last Admin: 11/14/23 17:25 Dose: 160 mg Gabapentin (Gabapentin 300 Mg Cap) 300 mg PO TID [facility] Last Admin: 11/15/23 16:22 Dose: 300 mg HCTZ/Losartan Potassium (Losartan-Hctz 50-12.5 Mg 1 Each Tab) 1 each PO DAILY [facility] Last Admin: 11/15/23 09:21 Dose: 1 each Sodium Chloride (Saline 0.9%) 1,000 mls @ 75 mls/hr IV .[id number] [facility] Last Admin: 11/15/23 11:02 Dose: 75 mls/hr Ertapenem 1 gm/ Sodium (Chloride) 50 mls @ 100 mls/hr IVPB DAILY@1200 [facility]; Protocol Last Admin: 11/15/23 11:20 Dose: 100 mls/hr Loratadine (Loratadine 10 Mg Tab) 10 mg PO DAILY [facility] Last Admin: 11/15/23 09:21 Dose: 10 mg Metformin HCl (Metformin 500 Mg Tab) 500 mg PO [facility] Last Admin: 11/14/23 21:53 Dose: 500 mg Metformin HCl (Metformin 500 Mg Tab) 1,000 mg PO DAILY [facility] Last Admin: 11/15/23 09:21 Dose: 1,000 mg Montelukast Sodium (Montelukast 10 Mg Tab) 10 mg PO DAILY@1730 [facility] Last Admin: 11/14/23 17:25 Dose: 10 mg Morphine Sulfate (Morphine Sulfate 4 Mg/Ml Syringe) 4 mg IV Q4HR PRN PRN Reason: Severe Pain (Scale 7 to 10) Last Admin: 11/13/23 02:26 Dose: 4 mg Multivitamins (Multivitamins, Thera 1 Each Tab) 1 each PO DAILY [facility] Last Admin: 11/15/23 09:20 Dose: 1 each Naloxone HCl (Naloxone 0.4 Mg/Ml 1 Ml Vial) 0.2 mg IV Q2M PRN PRN Reason: Opioid Reversal Nystatin (Nystatin 100,000 Unit/Gm Powd 15 Gm) 1 applic TOPICAL BID [facility]; Protocol Last Admin: 11/15/23 09:22 Dose: 1 applic Ondansetron HCl (Ondansetron 4 Mg/2 Ml Vial) 4 mg IVP Q8HR PRN PRN Reason: Nausea And Vomiting Oxybutynin Chloride (Oxybutynin 10 Mg Tab.Er.24) 10 mg PO HS [facility] Last Admin: 11/14/23 21:53 Dose: 10 mg Pantoprazole Sodium (Pantoprazole 40 Mg Tablet) 40 mg PO DAILY [facility] Last Admin: 11/15/23 09:21 Dose: 40 mg Social history: Lives with nephew. No smoking. Alcohol occasionally. Physical examination: VITAL SIGNS 97.9, 86, 17, 103 x 57, 96% GENERAL: Sitting in bed, comfortable EYES: Pupils equal. Conjunctiva giuliano l. HEENT: External appearance of nose and ears normal, oral cavity grossly normal. NECK: JVD not raised; masses not palpable. HEART: First and second heart sounds are normal; no edema. LUNGS: Respiratory rate normal; clear to auscultation. ABDOMEN: Soft, nontender, liver spleen not palpable, no masses palpable. Left renal angle tenderness-greatly resolved PSYCH: Alert and oriented x3; mood and affect giuliano l. MUSCULOSKELETAL:No Clubbing/cyanosis;muscles-grossly intact INVESTIGATIONS, reviewed in the clinical context: November 13: White count 9.6 hemoglobin 11.8 potassium 4.[address] scan abdomen pelvis [November 11] unremarkable November 10: White count 8 hemoglobin 13.1 platelets 377 sodium 135 potassium 5.2 BUN 28 creatinine 1.04 lactic acid 2.1 UA positive for ketones, nitrite, leukoesterase, WBC Previous labs: Urine culture from [November 07] E. coli CT scan abdomen pelvis without contrast [November 07: Colonic diverticulosis. Otherwise unremarkable Assessment plan: -Acute on chronic recurrent UTI with cystitis. Consider pyelonephritis, given low-grade fever Patient's failed outpatient treatment. Cultures are growing E. coli from November 07. Sensitive only to IV antibiotics. IV Zosyn-changed to IV ertapenem November 13. CT scan abdomen pelvis with contrast: Unremarkable. Outpatient CT scan without contrast was unremarkable on November 07. ID and the patient have discussed about possible IV home antibiotics upon discharge.-That is being coordinated -Diabetes mellitus type 2 on oral hypoglycemic Metformin. Follow Accu-Cheks -Hyperlipidemia Crestor 20 mg nightly. Lofibra. Zetia. -GERD Prilosec 40 mg a day -Essential hypertension Hyzaar 50/12.5 -Peripheral neuropathy hand and feet Cymbalta 60 mg nightly. Gabapentin 3 mg 3 times daily -Chronic urine incontinence Oxybutynin -Perleche-at the corner of the left mouth. Typically happens from vitamin deficiency in this case from taking Reglan antibiotics likely. Patient be put on multivitamins. Told the patient to keep the area dry. This is not a cold sore. -Full code Home IV antibiotics are being coordinated by ID aids social worker. Discussed with patient. Past Medical History Past Medical History: Asthma, Cancer, Diabetes Mellitus, GERD/Reflux, Hyperlipidemia, Hypertension, Mitral Valve Prolapse (MVP), Neurologic Disorder, Osteoarthritis (OA) Additional Past Medical History / Comment(s): neuropathy in hands and feet, degenerative disc disease, skin ca shoulder 2013, mitral valve prolapse, type II diabetes, and seasonal allergies. 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 History of Any Multi-Drug Resistant Organisms: ESBL Date of last positivie culture/infection: 11/30/18 ESBL-E.coli MDRO Source:: Urine Past Surgical History: Adenoidectomy, Orthopedic Surgery, Tonsillectomy Additional Past Surgical History / Comment(s): left knee arthritis & tears repaired. Colonoscopy 2013(next after 10yr)., 2017 HAD TITANIUM NAIL/DUSTIN IN LT FEMUR Past Anesthesia/Blood Transfusion Reactions: Postoperative Nausea & Vomiting (PONV) Past Psychological History: No Psychological Hx Reported Smoking Status: Never smoker Past Alcohol Use History: Rare Past Drug Use History: None Reported
[2023-11-15 21:42] LABS: Glucose,Whole Blood 90 mg/dL (70-110)
[2023-11-16 02:18] VITALS: TEMP 98.1
[2023-11-16 06:45] LABS: Glucose,Whole Blood 86 mg/dL (70-110)
--- NOTE | 2023-11-16 08:35 | P.PN ---
Subjective Progress Note Date: 11/15/23 Principal diagnosis: Reason for follow-up is a drug-resistant UTI Patient is a 63-year-old female with a past medical history significant for diabetes mellitus hypertension hyperlipidemia mitral valve prolapse osteoarthritis and recurrent UTI admitted to hospital with a drug- resistant UTI. On today's evaluation that is 11/15/2023,the patient remains to be afebrile, p atient is on room air not requiring supplemental oxygen and denies any shortness of breath no chest pain or cough.Patient denies having any nausea or vomiting, no abdominal pain and no diarrhea has been reported, did patient improvement her urinary symptoms but not complete resolution. No new lab has been obtained today Objective - Vital Signs Vital signs: Vital Signs Temp 97.8 F 11/15/23 07:08 Pulse 63 11/15/23 07:08 Resp 17 11/15/23 07:08 BP 114/72 11/15/23 07:08 Pulse Ox 97 11/15/23 07:08 FiO2 Intake & Output 11/14/23 11/15/23 11/15/23 18:59 06:59 18:59 Other: Voiding Method Toilet Toilet Toilet # Voids 3 2 1 # Bowel Movements 1 - Exam GENERAL DESCRIPTION: Middle-age female lying in bed in no distress RESPIRATORY SYSTEM: Unlabored breathing , decreased breath sounds at bases HEART: S1 S2 regular rate and rhythm , ABDOMEN: Soft , no tenderness EXTREMITIES: No edema feet - Labs CBC & Chem 7: 11/14/23 02:59 11/14/23 02:59 Labs: Microbiology - Last 24 Hours (Table) 11/11/23 16:44 Blood Culture - Preliminary Blood Assessment and Plan (1) Candidiasis, cutaneous Current Visit: Yes Status: Acute Code(s): B37.2 - CANDIDIASIS OF SKIN AND NAIL SNOMED Code(s): 06364593 (2) Failure of outpatient treatment Current Visit: Yes Status: Acute Code(s): Z78.9 - OTHER SPECIFIED HEALTH STATUS SNOMED Code(s): 022788328 (3) UTI (urinary tract infection) Current Visit: Yes Status: Acute Code(s): N39.0 - URINARY TRACT INFECTION, SITE NOT SPECIFIED SNOMED Code(s): 29995866 Plan: 1patient presenting to the hospital with left flank pain urinary symptoms of lower abdominal discomfort and foul-smelling urine did have significantly positive UA with the recent urine culture positive for a drug-resistant E. coli failing outpatient oral Keflex therapy patient did have a CT abdominal pelvis on 11/08/2023 did not show any evidence of obstructive uropathy 2-patient also complaining of rash in bilateral groin area suggestive of cutaneous candidiasis we will continue with the nystatin powder, patient mention improvement in the rash 3-patient urine has been finalized with ESBL E. coli 4detailed discussion with the patient as well as with admitting physician as the patient did not have any fever elevated white count CT was negative clinical ly not behaving as pyelonephritis however the patient has been very concerned Especially with her symptoms and want to continue with the IV Invanz nurse outreach case manager to check her coverage home versus outpatient infusion for 10-day course Dictation was produced using [employer] dictation software. please excuse any grammatical, word or spelling errors. Time with Patient: Less than 30
[2023-11-16 08:53] VITALS: BP 114/66; PULSE 63; RESP 14
[2023-11-16 11:16] LABS: Glucose,Whole Blood 107 mg/dL (70-110)
--- NOTE | 2023-11-16 13:49 | P.PN ---
Subjective Progress Note Date: 11/16/23 Principal diagnosis: Reason for follow-up is a drug-resistant UTI Patient is a 63-year-old female with a past medical history significant for diabetes mellitus hypertension hyperlipidemia mitral valve prolapse osteoarthritis and recurrent UTI admitted to hospital with a drug- resistant UTI. On today's evaluation that is 11/16/2023, the patient continues to be afebrile, the patient is on room air and breathing comfortably, the Pt denies having any chest pain or cough, the patient denies having any abdominal pain no vomiting or any diarrhea, patient mention improvement in her urinary symptoms and left flank pain with IV antibiotic. No new lab has been obtained today blood culture has been negative Objective - Vital Signs Vital signs: Vital Signs Temp 98.1 F 11/16/23 08:00 Pulse 63 11/16/23 09:15 Resp 14 11/16/23 09:15 BP 114/66 11/16/23 08:00 Pulse Ox 97 11/16/23 08:00 FiO2 Intake & Output 11/15/23 11/16/23 11/16/23 18:59 06:59 18:59 Other: Voiding Method Toilet Toilet # Voids 1 3 # Bowel Movements 1 - Exam GENERAL DESCRIPTION: Middle-age female lying in bed in no distress RESPIRATORY SYSTEM: Unlabored breathing , decreased breath sounds at bases HEART: S1 S2 regular rate and rhythm , ABDOMEN: Soft , no tenderness EXTREMITIES: No edema feet - Labs CBC & Chem 7: 11/14/23 02:59 11/14/23 02:59 Labs: Abnormal Lab Results - Last 24 Hours (Table) 11/15/23 Range/Units 16:26 POC Glucose (mg/dL) 118 H (70-110) mg/dL Assessment and Plan (1) Candidiasis, cutaneous Current Visit: Yes Status: Acute Code(s): B37.2 - CANDIDIASIS OF SKIN AND NAIL SNOMED Code(s): 55892001 (2) Failure of outpatient treatment Current Visit: Yes Status: Acute Code(s): Z78.9 - SNOMED Code(s): 064199797 (3) UTI (urinary tract infection) Current Visit: Yes Status: Acute Code(s): N39.0 - URINARY TRACT INFECTION, SITE NOT SPECIFIED SNOMED Code(s): 97740528 Plan: 1patient presenting to the hospital with left flank pain urinary symptoms of lower abdominal discomfort and foul-smelling urine did have significantly positive UA with the recent urine culture positive for a drug-resistant E. coli failing outpatient oral Keflex therapy patient did have a CT abdominal pelvis on 11/08/2023 did not show any evidence of obstructive uropathy 2-patient also complaining of rash in bilateral groin area suggestive of cutane ous candidiasis we will continue with the nystatin powder x 7 days on discharge 3-patient urine has been finalized with ESBL E. coli 4midline has been ordered for outpatient IV antibiotic in the form of Invanz 1 g daily patient agreed with the plan and close outpatient follow-up, discussed with admitting physician Dictation was produced using [employer] dictation software. please excuse any grammatical, word or spelling errors. Time with Patient: Less than 30
--- NOTE | 2023-11-16 22:33 | P.DS ---
Providers Date of admission: 11/11/23 18:34 Expected date of discharge: 11/16/23 Attending physician: Ayush Edwards Consults: 11/12/23 10:06 Consult Physician Routine Consulting Provider: David Valentin Consult Reason/Comments: Resistant UTI Do you want consulting provider notified?: Yes Primary care physician: [facility] Course: Chief Complaint: Left flank pain This is a very pleasant 63-year-old patient who follows with Arleth Ellison with Dr. Cox. Chronic stable medical conditions include asthma, diabetes, GERD, hyperlipi demia, hypertension, neuropathy in hand and feet, DJD, mitral valve prolapse,. Patient's had multiple UTIs in the past. Often times she will not get symptoms until is rather advanced. Does not get the classical frequency urgency dysuria etc. Oftentimes will get a left flank pain. For 2-1/2 months patient's had left flank pain. On and off. Was given a course of antibiotic. Symptoms did not improve then came to the ER on November 07. Urine was sent off. She was called that she has got E. coli resistant to most oral antibiotics. Admitted for the same. Patient's appetite is fair. Has had low-grade fever. Does feel rather tired and exhausted. Admitted and started on Zosyn November 12: Patient left flank pain much improved. CT scan with contrast unremarkable. Eating fair. IV fluids. Discussed with patient. Follow with ID. November 13: Comfortable. No urinary symptoms. Discussed with ID. Given patient's had no fever no white count no urinary symptoms. We have decided to give her 1 more dose of IV or ertapenem tomorrow. And discharged after the same. Discussed with the patient. No urinary symptoms. No white count. No fever no chills. Good appetite. November 14: Patient doing well. No urinary symptoms. No fever no white count. Further discussion with the patient and ID Dr. Nogueira. They have decided proceed with home IV antibiotics. That is being worked out. And the financial aspect of outpatient antibiotics. November 15: Doing well. No urinary symptoms. No white count. PICC line. Being discharged on IV Invanz per ID. Discussed with patient. Social history: Lives with nephew. No smoking. Alcohol occasionally. Physical examination: VITAL SIGNS: 98.1, 63, 14, 114 x 66, 97% room air GENERAL: Sitting in bed, comfortable EYES: Pupils equal. Conjunctiva giuliano l. HEENT: External appearance of nose and ears normal, oral cavity grossly normal. NECK: JVD not raised; masses not palpable. HEART: First and second heart sounds are normal; no edema. LUNGS: Respiratory rate normal; clear to auscultation. ABDOMEN: Soft, nontender, liver spleen not palpable, no masses palpable. Left renal angle tenderness-greatly resolved PSYCH: Alert and oriented x3; mood and affect giuliano l. MUSCULOSKELETAL:No Clubbing/cyanosis;muscles-grossly intact INVESTIGATIONS, reviewed in the clinical context: November 13: White count 9.6 hemoglobin 11.8 potassium 4.[address] scan abdomen pelvis [November 11] unremarkable November 10: White count 8 hemoglobin 13.1 platelets 377 sodium 135 potassium 5.2 BUN 28 creatinine 1.04 lactic acid 2.1 UA positive for ketones, nitrite, leukoesterase, WBC Previous labs: Urine culture from [November 07] E. coli CT scan abdomen pelvis without contrast [November 07: Colonic diverticulosis. Otherwise unremarkable Assessment plan: -Acute on chronic recurrent UTI with cystitis. Consider pyelonephritis, given low-grade fever Patient's failed outpatient treatment. Cultures are growing E. coli from November 07. Sensitive only to IV antibiotics. IV Zosyn-changed to IV ertapenem November 13. CT scan abdomen pelvis with contrast: Unremarkable. Outpatient CT scan without contrast was unremarkable on November 07. ID and the patient have discussed about possible IV home antibiotics upon discharge.- Discharged on IV Invanz per ID -Diabetes mellitus type 2 on oral hypoglycemic Metformin. Follow Accu-Cheks -Hyperlipidemia Crestor 20 mg nightly. Lofibra. Zetia. -GERD Prilosec 40 mg a day -Essential hypertension Hyzaar 50/12.5 -Peripheral neuropathy hand and feet Cymbalta 60 mg nightly. Gabapentin 3 mg 3 times daily -Chronic urine incontinence Oxybutynin -Perleche-at the corner of the left mouth. Typically happens from vitamin deficiency in this case from taking Reglan antibiotics likely. Patient be put on multivitamins. Told the patient to keep the area dry. This is not a cold sore. -Full code Disposition: Home Past Medical History Past Medical History: Asthma, Cancer, Diabetes Mellitus, GERD/Reflux, Hyperlipidemia, Hypertension, Mitral Valve Prolapse (MVP), Neurologic Disorder, Osteoarthritis (OA) Additional Past Medical History / Comment(s): neuropathy in hands and feet, degenerative disc disease, skin ca shoulder 2013, mitral valve prolapse, type II diabetes, and seasonal allergies. 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 History of Any Multi-Drug Resistant Organisms: ESBL Date of last positivie culture/infection: 11/30/18 ESBL-E.coli MDRO Source:: Urine Past Surgical History: Adenoidectomy, Orthopedic Surgery, Tonsillectomy Additional Past Surgical History / Comment(s): left knee arthritis & tears repaired. Colonoscopy 2013(next after 10yr)., 2017 HAD TITANIUM NAIL/DUSTIN IN LT FEMUR Past Anesthesia/Blood Transfusion Reactions: Postoperative Nausea & Vomiting (PONV) Past Psychological History: No Psychological Hx Reported Smoking Status: Never smoker Past Alcohol Use History: Rare Past Drug Use History: None Reported Plan - Discharge Summary Discharge Rx Participant: No New Discharge Prescriptions: New Multivitamins, Thera [Multivitamin (formulary)] 1 each PO DAILY tab Nystatin 100,000 Unit/gm Powd [Mycostatin Powder] 1 applic TOPICAL BID each Continue Cyclobenzaprine [Flexeril] 10 mg PO TID Loratadine [Claritin] 10 mg PO DAILY Montelukast [Singulair] 10 mg PO DAILY@1730 Ezetimibe [Zetia] 10 mg PO HS metFORMIN HCL [Glucophage] 500 mg PO HS Oxybutynin Chloride [oxyBUTYnin chloride ER] 10 mg PO HS Cranberry Fruit Extract [Cranberry] 500 mg PO BID Rosuvastatin [Crestor] 20 mg PO HS Biotin/Keratin 10,000mg 1 tab PO DAILY@1730 Calcium 1,000mg 3,000 mg PO DAILY@1730 DULoxetine HCL [Cymbalta] 60 mg PO HS Fenofibrate [Lofibra] 160 mg PO DAILY@1730 metFORMIN HCL [Glucophage] 1,000 mg PO DAILY valACYclovir HCL [Valtrex] 1,000 mg PO DIRECTED PRN PRN Reason: Cold Sores Omeprazole [PriLOSEC] 40 mg PO DAILY Cholecalciferol [Vitamin D3 (25 Mcg = 1000 Iu)] 50 mcg PO DAILY Gabapentin 300 mg PO TID Acetaminophen [Tylenol Arthritis] 1,300 mg PO Q6H PRN PRN Reason: Pain Or Fever > 100.5 Aspirin EC [Ecotrin Low Dose] 81 mg PO DAILY@173 Losartan-Hctz 50-12.5 mg [Hyzaar 50-12.5] 1 tab PO DAILY Benzonatate [Tessalon Perle] 200 mg PO DIRECTED PRN PRN Reason: Cough Discontinued Cephalexin [Keflex] 500 mg PO Q6HR #40 cap Discharge Medication List Cyclobenzaprine [Flexeril] 10 mg PO TID 03/25/15 [History] Loratadine [Claritin] 10 mg PO DAILY 03/25/15 [History] Montelukast [Singulair] 10 mg PO DAILY@1730 03/25/15 [History] Ezetimibe [Zetia] 10 mg PO HS 05/08/16 [History] metFORMIN HCL [Glucophage] 500 mg PO HS 06/07/18 [History] Oxybutynin Chloride [oxyBUTYnin chloride ER] 10 mg PO HS 09/19/19 [History] Cranberry Fruit Extract [Cranberry] 500 mg PO BID 05/10/20 [History] Omeprazole [PriLOSEC] 40 mg PO DAILY 05/10/20 [History] Cholecalciferol [Vitamin D3 (25 Mcg = 1000 Iu)] 50 mcg PO DAILY 10/15/20 [History] Rosuvastatin [Crestor] 20 mg PO HS 02/10/22 [History] Acetaminophen [Tylenol Arthritis] 1,300 mg PO Q6H PRN 11/11/23 [History] Aspirin EC [Ecotrin Low Dose] 81 mg PO DAILY@172911/11/23 [History] Benzonatate [Tessalon Perle] 200 mg PO DIRECTED PRN 11/11/23 [History] Biotin/Keratin 10,000mg 1 tab PO DAILY@172911/11/23 [History] Calcium 1,000mg 3,000 mg PO DAILY@172911/11/23 [History] DULoxetine HCL [Cymbalta] 60 mg PO HS 11/11/23 [History] Fenofibrate [Lofibra] 160 mg PO DAILY@17311/11/23 [History] Gabapentin 300 mg PO TID 11/11/23 [History] Losartan-Hctz 50-12.5 mg [Hyzaar 50-12.5] 1 tab PO DAILY 11/11/23 [History] metFORMIN HCL [Glucophage] 1,000 mg PO DAILY 11/11/23 [History] valACYclovir HCL [Valtrex] 1,000 mg PO DIRECTED PRN 11/11/23 [History] Multivitamins, Thera [Multivitamin (formulary)] 1 each PO DAILY tab 11/15/23 [Rx] Nystatin 100,000 Unit/gm Powd [Mycostatin Powder] 1 applic TOPICAL BID each 11/15/23 [Rx] Follow up Appointment(s)/Referral(s): Edgardo Cox DO [Primary Care Provider] - 1-2 days (Office stated they will call patient for follow-up appointment) [facility] [NON-STAFF] - 11/17/23 10:30 am (First IV antibiotic administration scheduled for tomorrow at 10:30a.) Patient Instructions/Handouts: Urinary Tract Infection in Women (DC) Discharge Disposition: HOME WITH HOME HEALTH SERVICES
== END 2023-11-16 14:43 | disposition home health service (06) | DRG 690 ==
LOC: EC 16:06 → 4SSUR 18:34
PROVIDERS: ADMIT Hospitalist; ATTEND Hospitalist
PROC: 05HF33Z Insertion of Infusion Device into Left Cephalic Vein, Percutaneous Approach (ICD-10-PCS; principal; 2023-11-16 07:30)
DX: N39.0 Urinary tract infection, site not specified (principal); Z87.440 Personal history of urinary (tract) infections; B96.20 Unspecified Escherichia coli [E. coli] as the cause of diseases classified elsewhere; E11.42 Type 2 diabetes mellitus with diabetic polyneuropathy; E78.5 Hyperlipidemia, unspecified; I10 Essential (primary) hypertension; Z82.49 Family history of ischemic heart disease and other diseases of the circulatory system; K21.9 Gastro-esophageal reflux disease without esophagitis; B37.2 Candidiasis of skin and nail; J45.909 Unspecified asthma, uncomplicated; R32 Unspecified urinary incontinence; I34.1 Nonrheumatic mitral (valve) prolapse; I73.89 Other specified peripheral vascular diseases; M17.12 Unilateral primary osteoarthritis, left knee; Z79.82 Long term (current) use of aspirin; Z79.84 Long term (current) use of oral hypoglycemic drugs; Z79.899 Other long term (current) drug therapy; Z80.3 Family history of malignant neoplasm of breast; Z83.3 Family history of diabetes mellitus; Z91.041 Radiographic dye allergy status
CPT/HCPCS: 36410; 36415; 74178; 76942; 80048; 80053; 81001; 83605; 84145; 85025; 85610; 85730; 87040; 87077; 87086; 87186; 96365; 96366; 99285

== ENCOUNTER 2023-12-15 06:20 | Day surgery (SDC) | payer MEDICARE ==
[2023-12-14 10:56] VITALS: BMI 31.8
[2023-12-15 08:04] VITALS: TEMP 98.1
[2023-12-15] MEDS: IV FLUID CONTINUATION 1,000 ML IV ONE (08:21)
[2023-12-15] MEDS: LACTATED RINGERS 1,000 ML IV SCH (08:23)
[2023-12-15 08:24] LABS: Glucose,Whole Blood 93 mg/dL (70-110)
[2023-12-15] MEDS ORDERED: PROPOFOL 10 MG/ML 20 ML VIAL IV ONE (08:44)
--- NOTE | 2023-12-15 09:05 | P.PCN ---
Date of Procedure: 12/15/23 Procedure(s) Performed: BRIEF HISTORY: Patient is a 63-year-old pleasant white female scheduled for an elective colonoscopy as a part of for colon cancer. PROCEDURE PERFORMED: Colonoscopy. PREOPERATIVE DIAGNOSIS: Screening for colon cancer. IV sedation per Anesthesia. PROCEDURE: After informed consent was obtained, the patient, was brought into the endoscopy unit. IV sedation was administered by Anesthesia under continuous monitoring. Digital rectal examination was normal. Initially the Olympus CF-160 flexible video colonoscope was then inserted in the rectum, gradually advanced into the cecum without any difficulty. Careful examination was performed as the scope was gradually being withdrawn. Ileocecal valve and the appendiceal orifice were visualized and appeared normal. Prep was fair.. Mucosa of the cecum, ascending colon, transverse colon, descending colon, sigmoid colon, and rectum appeared normal. Retroflexion was performed in the rectum and no lesions were seen. The patient tolerated the procedure well. IMPRESSION: Normal-appearing colon from rectum to cecum no evidence of colorectal neoplasia. RECOMMENDATIONS: Findings of this examination were discussed with the patient as well as his family. He was advised to have repeat screening colonoscopy in 10 years for.
[2023-12-15 09:24] VITALS: BP 108/68; PULSE 74; RESP 16
== END 2023-12-15 10:01 | disposition home or self-care (01) ==
LOC: ORWHC2ENDO 06:20
PROVIDERS: ATTEND Internal Medicine Gastroenterology
DX: Z12.11 Encounter for screening for malignant neoplasm of colon (principal); E78.5 Hyperlipidemia, unspecified; M19.90 Unspecified osteoarthritis, unspecified site; K21.9 Gastro-esophageal reflux disease without esophagitis; E11.40 Type 2 diabetes mellitus with diabetic neuropathy, unspecified; J45.909 Unspecified asthma, uncomplicated; N28.9 Disorder of kidney and ureter, unspecified; Z79.02 Long term (current) use of antithrombotics/antiplatelets; Z79.82 Long term (current) use of aspirin; Z79.84 Long term (current) use of oral hypoglycemic drugs; Z79.899 Other long term (current) drug therapy; Z88.9 Allergy status to unspecified drugs, medicaments and biological substances; Z88.5 Allergy status to narcotic agent
CPT/HCPCS: J2704; G0121

== ENCOUNTER → 2024-08-01 | Outpatient (CLI) | payer MEDICARE ==
[2024-08-01 15:33] VITALS: BP 110/68; PULSE 86; RESP 16; TEMP 97.7
--- NOTE | 2024-08-01 16:14 | P.HPOB ---
History of Present Illness H&P Date: 08/01/24 Chief Complaint: The patient is here for her routine gynecologic exam and ma mmogram. This is a 64-year-old G1, P1 with an LMP of 2012. The patient is without gynecologic complaints, but states that she did have 2 urinary tract infections that did require IV antibiotics. She has had a problem through most of her life with fairly frequent UTIs. She has a urologist that she sees. She is wondering if there can be something structurally wrong that predisposes her to UTIs. She did have lots of tearing at the time of childbirth and wonders if this has something to do with it. She has a boyfriend who she has been with since December 2023 and they are sexually active. She does not believe the UTIs are related to the sexual activity. She denies any vaginal discharge. Review of Systems The patient's weight has been stable over the last year. She denies cardiac or G.I. problems. Respiratory: Occasional coughing since having COVID last year. She states that it has gradually been improving and she has seen doctors for this. Past Medical History Past Medical History: Asthma, Cancer, Diabetes Mellitus, GERD/Reflux, Hyperlipidemia, Hypertension, Mitral Valve Prolapse (MVP), Neurologic Disorder, Osteoarthritis (OA), Renal Disease Additional Past Medical History / Comment(s): neuropathy in hands and feet, degenerative disc disease, skin ca shoulder 2013, mitral valve prolapse, type II diabetes NIDDM, and seasonal allergies. Basal cell Skin cancer. 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 History of Any Multi-Drug Resistant Organisms: ESBL Date of last positivie culture/infection: 11/30/18 ESBL-E.coli MDRO Source:: Urine Past Surgical History: Heart Catheterization, Orthopedic Surgery, Tonsillectomy Additional Past Surgical History / Comment(s): left knee arthritis & tears repaired. Colonoscopy 2023(next after 10yr)., 2017 HAD TITANIUM NAIL/DUSTIN IN LT FEMUR and rt femur. Past Anesthesia/Blood Transfusion Reactions: Postoperative Nausea & Vomiting (PONV) Additional Past Anesthesia/Blood Transfusion Reaction / Comment(s): No hx of blood transfusion to date. Past Psychological History: No Psychological Hx Reported Smoking Status: Never smoker Past Alcohol Use History: None Reported Past Drug Use History: None Reported Additional History: She is single and has been with her boyfriend since December 2023. They live together and they are sexually active. She is retired. - Past Family History Mother Family Medical History: Cancer, Congestive Heart Failure (CHF), Coronary Artery Disease (CAD), Diabetes Mellitus, Hyperlipidemia, Hypertension Additional Family Medical History / Comment(s): Breast cancer. Father Family Medical History: Coronary Artery Disease (CAD), Diabetes Mellitus, Hyperlipidemia, Hypertension Additional Family Medical History / Comment(s): passed during an angioplasty Daughter(s) Family Medical History: No Reported History Sister(s) Family Medical History: Cancer Additional Family Medical History / Comment(s): breast cancer Medications and Allergies Home Medications Medication Instructions Recorded Confirmed Type Cyclobenzaprine [Flexeril] 10 mg PO TID 03/25/15 03/15/24 History Montelukast [Singulair] 10 mg PO HS 03/25/15 03/15/24 History Ezetimibe [Zetia] 10 mg PO DAILY 05/08/16 03/15/24 History metFORMIN HCL [Glucophage] 500 mg PO HS 06/07/18 03/15/24 History Oxybutynin Chloride [oxyBUTYnin 10 mg PO HS 09/19/19 03/15/24 History chloride ER] Cranberry Fruit Extract [Cranberry] 500 mg PO DAILY 05/10/20 03/15/24 History Omeprazole [PriLOSEC] 40 mg PO DAILY 05/10/20 03/15/24 History Rosuvastatin [Crestor] 20 mg PO DAILY 02/10/22 03/15/24 History Aspirin EC [Ecotrin Low Dose] 81 mg PO DAILY 11/11/23 03/15/24 History DULoxetine HCL [Cymbalta] 30 mg PO BID 11/11/23 03/15/24 History Fenofibrate [Lofibra] 160 mg PO DAILY 11/11/23 03/15/24 History Gabapentin 300 mg PO TID 11/11/23 03/15/24 History Losartan-Hctz 50-12.5 mg [Hyzaar 1 tab PO DAILY 11/11/23 03/15/24 History 50-12.5] metFORMIN HCL [Glucophage] 1,000 mg PO DAILY 11/11/23 03/15/24 History Vitamin D3/Vitamin K2 (Mk4) 1 tab PO DAILY 03/15/24 03/15/24 History [Vitamin K2 Plus D3 Tablet] Calcium Carbonate [Calcium] 600 mg PO DAILY 08/01/24 08/01/24 History Ferrous Sulfate [Feosol] 325 mg PO DAILY 08/01/24 08/01/24 History Allergies Allergy/AdvReac Type Severity Reaction Status Date / Time Iodine and Iodide Containing Allergy burning Verified 08/01/24 15:25 Produc Ngoc-hex4 Allergy Rash/Hives Uncoded 08/01/24 15:25 Exam Vital Signs Temp Pulse Resp BP Pulse Ox 08/01/24 15:27 97.7 F 86 16 110/68 96 Intake and Output 08/01/24 08/01/24 08/01/24 06:59 14:59 22:59 Other: Weight 91.626 kg Height 5 feet 3 inches, weight 202 pounds, BMI 35.8. This is a well-developed well-nourished white female who is alert and oriented times 3 in no acute distress. HEENT: Within normal limits. NECK: Supple without mass or thyromegaly. CHEST AND LUNGS: Clear to auscultation. HEART: Regular rate and rhythm. BREASTS: Are without mass or discharge. AXILLARY EXAM: Negative for adenopathy. BACK: Negative for CVA tenderness. ABDOMEN: Soft, nontender, without palpable masses. PELVIC EXAM: Normal external genitalia with mild atrophy. Cervix and vagina appear normal with mild atrophy. There is no unusual discharge. There is no evidence of prolapse. The uterus is midposition, nongravid size and nontender. There are no palpable adnexal masses or tenderness. RECTAL EXAM: Rectovaginal exam is negative for mass or tenderness and is negative for occult blood. There is no evidence of a defect in the rectovaginal septum wall. EXTREMITIES: Nontender. IMPRESSION: 1. 64-year-old menopausal female with normal gynecologic exams. 2. Long history of recurrent UTIs and to episodes of pyelonephritis requiring IV antibiotics during the past year. 3. History of osteopenia. PLAN: 1. Pap smear was deferred since she had a negative Pap smear cotest on 10/15/2020. Will plan on repeating this next year. 2. Self breast awareness was discussed with the patient. We have also discussed symptoms associated with inflammatory breast cancer. 3. Screening mammogram will be done today. 4. Osteoporosis prevention was discussed. We will plan on repeating the bone density test today. 5. We have had a long discussion regarding her recurrent UTIs. Reassured her that her gynecologic exam is within normal limits and I do not see any structural defects which would predispose her to UTIs. Genital atrophy related to the menopausal change can increase the chances of bacteria getting into the vagina. I have recommended a trial of estradiol vaginal cream 1 g into the vagina and to the urinary opening area twice weekly. The electronic prescription will be sent to [facility] on in [place]. I have also recommended regular Kegel exercises and instructions were given to the patient on this. Also recommended that she try to identify symptoms of UTI as early as possible. She states this has always been difficult for her as she does not have the typical burning and urinary urgency or frequency. Recommended that she try to void soon after sexual activity. She states she does do this. If she continues to have frequent UTIs, we can consider postcoital nitrofurantoin, since sexual activity may increase the chances of getting a UTI. 6. She was advised to return in one year for her annual well woman exam and as needed.
--- NOTE | 2024-08-02 07:41 | MM ---
Reason for Exam: Screening (asymptomatic). Last mammogram was performed 2 year(s) and 5 month(s) ago. Patient History: Menarche at age 10. First Full-Term at age 19. Postmenopausal. Other cancer, age 34. Maternal cousin had breast cancer. Mother had breast cancer. Risk Values: Vera 5 year model risk: 3.5%. NCI Lifetime model risk: 12.7%. Prior Study Comparison: 10/15/2020 Bilateral Screening Mammogram, [facility]. 05/28/2021 Right Diagnostic Mammogram, [facility]. 02/10/2022 Bilateral MG 3D screening mammo w/cad, [facility]. Tissue Density: There are scattered areas of fibroglandular density. Findings: Analyzed By CAD. Right breast: There is no suspicious group of microcalcifications or new suspicious mass. Left breast: There is no suspicious group of microcalcifications or new suspicious mass. Overall Assessment: Negative, BI-RAD 1 Management: Screening Mammogram of both breasts in [address] [facility] will attempt to contact patient to return for supplemental views and ultrasound if indicated. Patient should continue monthly self-breast exams. A clinical breast exam by your physician is recommended on an annual basis. This exam should not preclude additional follow-up of suspicious palpable abnormalities. Note on Vera scores and lifetime risk: 1. A Vera score greater than 3% is considered moderate risk. If this is the case, consider specialist referral to assess eligibility for a risk reducing agent. 2. If overall lifetime risk for the development of breast cancer is 20% or higher, the patient may qualify for future screening with alternating mammogram and breast MRI. [facility], , 08/02/2024 7:38 AM. Electronically signed and approved by: Avinash Rodriguez DO
--- NOTE | 2024-08-03 15:29 | BD ---
EXAMINATION TYPE: Axial Bone Density DATE OF EXAM: 08/01/2024 CLINICAL HISTORY: 64 years old Female. ICD-10 CODE: Z780 POST CRISTO WITHOUT HRT , Additional History: weight: 63 Weight: 201 FRAX RISK QUESTIONS: Alcohol (3 or more units per day): no Family History (Parent hip fracture): no Glucocorticoids (More than 3mos): no (Ex: prednisone, prednisolone, methylprednisolone, dexamethasone, and hydrocortisone). History of Fracture in Adulthood: yes Secondary Osteoporosis: 1. Type 1 Diabetes: no 2. Hyperthyroidism: no 3. Menopause before 45: no 4. Malnutrition: no 5. Chronic liver disease: no Rheumatoid Arthritis: no Current Tobacco Use: no RISK FACTORS HISTORY OF: Surgery to Spine/Hip(right/left)/Wrist (right/left): no EXAM MEASUREMENTS: Bone mineral densitometry was performed using the [employer]. Bone mineral density as measured about the Lumbar spine is: ----- L1-L4(G/cm2): 1.288 T Score Values are as follows: ----- L1: 1.7 ----- L2: 1.2 ----- L3: 0.8 ----- L4: 0.1 ----- L1-L4: 0.9 Z Score Values are as follows: ----- L1: 2.4 ----- L2: 1.9 ----- L3: 1.5 ----- L4: 0.8 ----- L1-L4: 1.6 Bone mineral density has: decreased -2.4 % since study of: 02.16.2022 Bone mineral density about the R hip (g/cm2): 0.969 Bone mineral density about the L hip (g/cm2): 1.008 T Score values are as follows: -----R Neck: -1.7 -----L Neck: -1.6 -----R Total: -0.3 -----L Total: 0.0 Z Score values are as follows: -----R Neck: -0.8 -----L Neck: -0.7 -----R Total: 0.3 -----L Total: 0.6 Bone mineral density has: decreased 5.2 % since study of: 3 FRAX%s: The graph provided illustrates a 14.7% chance for a major osteoporotic fx and a 1.7% chance f or the hips probability for fx in 10 years time. IMPRESSION: Osteopenia (T Score between -2.5 and -1). There is slightly increased risk of fracture and the patient may be considered for treatment. Re-Screen 2-5 years. NOTE: T-SCORE=SD OF THE YOUNG ADULT MEAN. [facility], , 08/03/2024 3:26 PM
== END ==
LOC: WWCWWP 14:54
PROVIDERS: ATTEND Obstetrics & Gynecology
DX: Z01.419 Encounter for gynecological examination (general) (routine) without abnormal findings (principal); Z12.31 Encounter for screening mammogram for malignant neoplasm of breast; Z78.0 Asymptomatic menopausal state; N12 Tubulo-interstitial nephritis, not specified as acute or chronic; Z87.39 Personal history of other diseases of the musculoskeletal system and connective tissue; Z87.440 Personal history of urinary (tract) infections; Z88.8 Allergy status to other drugs, medicaments and biological substances; Z91.041 Radiographic dye allergy status
CPT/HCPCS: 77063; 77067; 77080